=== PATIENT | male | born 1945 | race Two or more races ===

== ENCOUNTER → 2023-03-22 07:16 | Outpatient (BNVA) | payer MEDICARE, SELFPAY | PROVIDERS: Visit Provider Student in an Organized Health Care Education/Training Program | DX: M06.09 Rheumatoid arthritis without rheumatoid factor, multiple sites (principal); M25.561 Pain in right knee; M67.912 Unspecified disorder of synovium and tendon, left shoulder; G89.29 Other chronic pain; Z79.631 Long term (current) use of antimetabolite agent; Z11.59 Encounter for screening for other viral diseases; Z72.89 Other problems related to lifestyle | CPT/HCPCS: 36415; 80053; 82607; 82746; 85025; 85652; 86140; 86481; 86704; 86706; 86709; 86803; 87340; 99202 ==

== ENCOUNTER 2023-03-22 08:41 | Outpatient (REF) | payer MEDICARE, SELFPAY ==
[2023-03-22 11:10] LABS: MANUAL DIFF FLAG NO
[2023-03-22 11:41] LABS: Basophils Absolute Auto 0.1 X10*3/uL (0.0-0.2); Eosinophils Absolute Auto 0.1 X10*3/uL (0.0-0.4); Eosinophils Percent Auto 2.8 % (0-4); Hematocrit 40.8 % (42.0-52.0); Hemoglobin 13.1 g/dl (14.0-18.0); Imm Gran Abs Auto 0.01 X10*3/uL (0.00-0.03); Imm Gran Pct Auto 0.2 % (0.0-0.4); Lymphocytes Absolute Auto 0.7 X10*3/uL (1.2-4.9); Lymphocytes Percent Auto 14.9 % (20-40); Mean Corpuscular HGB Conc 32.1 g/dl (31.0-36.0); Mean Corpuscular Hemoglobin 32.2 pg (27.0-33.0); Mean Corpuscular Volume 100.2 fL (80.0-98.0); Mean Platelet Volume 9.7 fL (9.4-12.4); Monocytes Absolute Auto 0.4 X10*3/uL (0.1-1.2); Neutrophils Absolute Auto 3.7 x10*3/uL (2.0-8.3); Neutrophils Percent Auto 74.1 % (45-73); Platelet Count 200 X10*3/uL (160-400); Red Blood Count 4.07 X10*6/uL (4.60-5.80); Red Cell Distribution Width 13.9 % (11.0-16.0)
[2023-03-22 12:11] LABS: Alanine Aminotransferase 23 U/L (0-40); Alkaline Phosphatase 87 U/L (39-117); Anion Gap 9 (12-20); Aspartate Amino Transferase 26 U/L (5-37); Bilirubin Total 0.7 mg/dL (0.0-1.0); Blood Urea Nitrogen 15 mg/dL (9-16); C Reactive Protein < 0.10 mg/dL (< or = 0.50); Calcium 8.9 mg/dL (8.4-10.2); Carbon Dioxide 27 mmol/L (22-29); Chloride 110 mmol/L (96-108); Estimated Glomerular Filt Rate > 60; Glucose Random 125 mg/dL (60-115); Potassium 4.3 mmol/L (3.3-5.1); Sodium 142 mmol/L (135-145); Total Protein 5.8 g/dL (6.5-8.0)
[2023-03-22 12:39] LABS: Erythrocyte Sedimentation Rate 2 MM/HR (0-15)
[2023-03-22 12:50] LABS: Folate > 20.0 ng/mL (> or = 4.0); Vitamin B12 424 pg/mL (200-900)
[2023-03-23 08:46] LABS: HBS Num1 0.09 mIU/mL (0-7.99); HBc Num1 0.06 S/CO (0.00-0.79); HBsAGNum1 0.31 S/CO (0.00-0.99); Hepatitis A Antibody IgM 0.13 Index (0-0.79); Hepatitis B Core Antibody Nonreactive (Nonreactive); Hepatitis B Surface Antigen Negative (Negative); ~HepC Num1 0.09 S/CO (0.00-0.79); ~Hepatitis A Antibody IgM Nonreactive (Nonreactive); ~Hepatitis B Surface Antibody NONREACTIVE (Nonreactive); ~Hepatitis C Antibody Nonreactive (Nonreactive)
[2023-03-24 15:09] LABS: TS Negative Control Passed; TS Panel A 0; TS Panel B 1; TS Positive Control Passed; TSpotTB Negative (Negative)
== END 2023-03-22 08:42 | disposition home or self-care (01) ==
LOC: HO.10HDL 08:41
PROVIDERS: Visit Provider Student in an Organized Health Care Education/Training Program
DX: Z13.89 Encounter for screening for other disorder (principal)
CPT/HCPCS: 36415; 80053; 82607; 82746; 85025; 85652; 86140; 86481; 86704; 86706; 86709; 86803; 87340

== ENCOUNTER 2023-07-13 07:43 | Outpatient (REF) | payer MEDICARE, SELFPAY ==
[2023-07-13 10:18] LABS: MANUAL DIFF FLAG NO
[2023-07-13 10:23] LABS: Basophils Absolute Auto 0.1 X10*3/uL (0.0-0.2); Basophils Percent Auto 1.4 % (0-2); Eosinophils Absolute Auto 0.3 X10*3/uL (0.0-0.4); Eosinophils Percent Auto 5.8 % (0-4); Hematocrit 37.9 % (42.0-52.0); Hemoglobin 12.3 g/dl (14.0-18.0); Imm Gran Abs Auto 0.01 X10*3/uL (0.00-0.03); Imm Gran Pct Auto 0.2 % (0.0-0.4); Lymphocytes Absolute Auto 1.1 X10*3/uL (1.2-4.9); Lymphocytes Percent Auto 18.5 % (20-40); Mean Corpuscular HGB Conc 32.5 g/dl (31.0-36.0); Mean Corpuscular Hemoglobin 32.9 pg (27.0-33.0); Mean Corpuscular Volume 101.3 fL (80.0-98.0); Mean Platelet Volume 9.7 fL (9.4-12.4); Monocytes Absolute Auto 0.5 X10*3/uL (0.1-1.2); Monocytes Percent Auto 8.5 % (2-11); Neutrophils Absolute Auto 3.8 x10*3/uL (2.0-8.3); Neutrophils Percent Auto 65.6 % (45-73); Platelet Count 218 X10*3/uL (160-400); Red Blood Count 3.74 X10*6/uL (4.60-5.80); Red Cell Distribution Width 14.2 % (11.0-16.0); White Blood Count 5.9 X10*3/uL (4.8-10.8)
[2023-07-13 10:50] LABS: Alanine Aminotransferase 20 U/L (0-40); Alkaline Phosphatase 78 U/L (39-117); Anion Gap 10 (12-20); Aspartate Amino Transferase 27 U/L (5-37); Bilirubin Total 0.6 mg/dL (0.0-1.0); Blood Urea Nitrogen 16 mg/dL (9-16); C Reactive Protein < 0.10 mg/dL (< or = 0.50); Calcium 9.3 mg/dL (8.4-10.2); Carbon Dioxide 26 mmol/L (22-29); Chloride 108 mmol/L (96-108); Estimated Glomerular Filt Rate > 60; Glucose Random 121 mg/dL (60-115); Potassium 4.2 mmol/L (3.3-5.1); Sodium 140 mmol/L (135-145); Total Protein 6.3 g/dL (6.5-8.0)
[2023-07-13 11:15] LABS: Erythrocyte Sedimentation Rate 4 MM/HR (0-15)
== END 2023-07-13 07:44 | disposition home or self-care (01) ==
LOC: HO.10HDL 07:43
PROVIDERS: Visit Provider Student in an Organized Health Care Education/Training Program
DX: Z79.899 Other long term (current) drug therapy (principal)
CPT/HCPCS: 36415; 80053; 85025; 85652; 86140

== ENCOUNTER 2023-07-24 09:08 | Outpatient (AMB) | payer MEDICARE, SELFPAY ==
[2023-07-24 09:14] VITALS: BP 118/78; PULSE 83; TEMP 36.6; O2SAT 95; BMI 23.4
--- NOTE | 2023-07-24 09:14 | MHC.OFFVIS ---
Intake Vital Signs 07/24/23 09:14 Height 5 ft 11 in Weight 167 lb 8.821 oz BMI 23.4 BP 118/78 Blood Pressure Location Rt brachial Position Sitting Pulse 83 Pulse Source Pulse Oximeter Temp 97.9 F Temp Source Skin Pulse Oximetry (%) 95 Intake Visit Reasons: RA Intake Note: Pt seen today for RA follow up. 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 Required: No Accompanied by: Self / Same As Patient Allergies No Known Allergies Allergy (Verified 07/24/23 09:17) Medication List - Last Reconciled 07/24/23 by Josefa Chau MD atorvastatin 20 mg PO DAILY famotidine 20 mg PO BEDTIME folic acid 2 mg PO gabapentin 300 mg PO BEDTIME methotrexate sodium (PF) 20 mg (0.8 mL) IM QWEEK oxycodone-acetaminophen 5-325 mg 1 tab PO DAILY PRN prednisone 3 mg (3 x 1 mg) PO DAILY tramadol 50 mg PO DAILY PRN vitamins A,C,C-ullm-ajvyvf 4,296 mcg-226 mg-90 mg (PreserVision AREDS) 1 cap PO BID HPI HPI Comments History of Present Illness Details 77-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 Doing about the same overall. Continues on methotrexate. Continues to have right knee pain worse with walking. Left shoulder is stiff. States that he strained his neck about a year ago when he was doing some yd work last year but it is slowly improving. Initial history: This is a 77-year-old male with seronegative RA who presents for initial visit. His previous lace weaver left the practice. Patient was diagnosed with seronegative RA back in 2014, but apparently he had had the symptoms for years before getting diagnosed. He had been on methotrexate since his diagnosis. He states that methotrexate has helped him over the years. Today patient is doing well overall. States that his right knee has been bothering him for a few years now. He has had cortisone injections which helped for 1 or 2 days in the past. States that the knee pain is worse with twisting movements. He uses a cane for balance and for right knee pain. 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 As well as scoliosis. He takes tramadol about once a week or Percocet once a week for back or knee pain. 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 [facility] [place] Physical Exam Vital Signs: Last Vital Signs Temp 97.9 F 07/24/23 09:14 Pulse 83 07/24/23 09:14 BP 118/78 07/24/23 09:14 Pulse Ox 95 07/24/23 09:14 BMI result Body Mass Index 23.4 Const General: cooperative, healthy appearing and comfortable Nutritional Appearance: average body habitus Orientation/consciousness: patient oriented x3 Limitations: ambulation with cane HEENT Head: Yes normocephalic and Yes atraumatic Resp Effort & Inspection: normal respiratory effort and able to speak in complete sentences Neuro General: patient oriented x3 Extrem Other: Positive empty can test left shoulder Negative infraspinatus test and lift-off test Osteoarthritic changes of both hands with Heberden's and Aby's nodes as well as the synovial thickening of MCPs without swelling or tenderness mild Right wrist swelling and tenderness Bilateral wrist contracture with significantly limited flexion and extension Left clubfoot with no synovitis Bilateral bunions and mild fibular deviation with no MTP tenderness Right knee crepitus and equivocal Radha's test Right knee pain with range of motion Assessment & Plan Assessment & Plan (1) Rheumatoid arthritis: Comment: seroneg dx 2015 on MTX since 2014 + PDN 3 mg Code(s): M06.9 - Rheumatoid arthritis, unspecified Qualifiers: Rheumatoid arthritis location: multiple sites Rheumatoid factor presence: without rheumatoid factor Qualified Code(s): M06.09 - Rheumatoid arthritis without rheumatoid factor, multiple sites Plan: This is a 78-year-old male with seronegative RA who returns for follow-up.. Patient patient has chronic disease with some deformities and contractures of his wrist. His RA is well controlled on current regimen. Methotrexate oral liquid 20 mg weekly, folic acid 2 mg daily and prednisone 3 mg daily Continue methotrexate 20 mg once weekly plus folic acid 2 mg daily. Reduce prednisone to 2.5 mg daily, advised patient to call the clinic if he starts flaring up and we can increase the dose back to 3 mg daily Infectious screening: Hepatitis panel and T spot negative 2022 Labs before next visit in 4 months (2) longterm methotrexate user: Code(s): Z79.631 - intermodal customer service (current) use of antimetabolite agent Plan: Side effects of methotrexate were discussed with the patient in detail including oral ulcers, elevated LFTs, abdominal discomfort, and possible pancytopenia is. Will monitor patient for side effects with frequent lab work. Advised patient to take folic acid daily to prevent complications of methotrexate. Patient has been on methotrexate for years with no side effects. (3) Tendinopathy of left rotator cuff: Code(s): M67.912 - Unspecified disorder of synovium and tendon, left shoulder Plan: Not interested in physical therapy at the moment. (4) Pain in right knee: Code(s): M25.561 - Pain in right knee Qualifiers: Chronicity: chronic Qualified Code(s): M25.561 - Pain in right knee; G89.29 - Other chronic pain Plan: Patient complains that his right knee sometimes gives out on him is specially with twisting movements, states that his balance is good with using the cane. Cortisone injections only provided 1-2 days relief in the past. Patient likely has significant osteoarthritis of his right knee and possible internal derangement but he is not interested in a knee MRI or being referred to Orthopedic surgery at the moment Left knee was replaced years ago Plan I spent 29 minutes reviewing patient's chart, evaluating patient, ordering diagnostic workup, counseling patient and documenting in the chart Orders: Orders Complete Blood Count Auto Diff 4 Months Z79.631 - intermodal customer service (current) use of antimetabolite agent Comprehensive Met. Panel 4 Months Z79.631 - longterm (current) use of antimetabolite agent C Reactive Protein 4 Months Z79.631 - longterm (current) use of antimetabolite agent Erythrocyte Sedimentation Rate 4 Months Z79.631 - intermodal customer service (current) use of antimetabolite agent Medications: New prednisone 2.5 mg PO DAILY 30 tabs 3RF Coding Level of Care Code Est Pt Level 4 (80836) Diagnoses Rheumatoid arthritis M06.09 Rheumatoid arthritis location: multiple sites Rheumatoid factor presence: without rheumatoid factor longterm methotrexate user Z79.631 Tendinopathy of left rotator cuff M67.912 Pain in right knee M25.561; G89.29 Chronicity: chronic
== END 2023-07-24 09:51 | disposition home or self-care (01) ==
PROVIDERS: Visit Provider Student in an Organized Health Care Education/Training Program
DX: M06.09 Rheumatoid arthritis without rheumatoid factor, multiple sites (principal); Z79.631 Long term (current) use of antimetabolite agent; M67.912 Unspecified disorder of synovium and tendon, left shoulder; M25.561 Pain in right knee; G89.29 Other chronic pain
CPT/HCPCS: 99214

== ENCOUNTER → 2023-07-24 09:08 | Outpatient (BNVA) | payer MEDICARE, SELFPAY | PROVIDERS: Visit Provider Student in an Organized Health Care Education/Training Program | DX: M06.09 Rheumatoid arthritis without rheumatoid factor, multiple sites (principal); M67.912 Unspecified disorder of synovium and tendon, left shoulder; G89.29 Other chronic pain; M25.561 Pain in right knee; Z79.631 Long term (current) use of antimetabolite agent; Z96.652 Presence of left artificial knee joint | CPT/HCPCS: 99212 ==

== ENCOUNTER 2023-11-09 08:37 | Outpatient (REF) | payer MEDICARE, SELFPAY ==
[2023-11-09 10:27] LABS: MANUAL DIFF FLAG NO
[2023-11-09 10:54] LABS: Alanine Aminotransferase 19 U/L (0-40); Albumin Level 4.1 g/dL (3.5-5.0); Alkaline Phosphatase 101 U/L (39-117); Anion Gap 11 (12-20); Aspartate Amino Transferase 24 U/L (5-37); Bilirubin Total 0.5 mg/dL (0.0-1.0); Blood Urea Nitrogen 15 mg/dL (9-16); C Reactive Protein 0.12 mg/dL (< or = 0.50); Calcium 9.2 mg/dL (8.4-10.2); Carbon Dioxide 28 mmol/L (22-29); Chloride 105 mmol/L (96-108); Estimated Glomerular Filt Rate > 60; Glucose Random 121 mg/dL (60-115); Potassium 4.2 mmol/L (3.3-5.1); Sodium 140 mmol/L (135-145); Total Protein 6.5 g/dL (6.5-8.0)
[2023-11-09 11:07] LABS: Basophils Absolute Auto 0.1 X10*3/uL (0.0-0.2); Basophils Percent Auto 0.9 % (0-2); Eosinophils Absolute Auto 0.2 X10*3/uL (0.0-0.4); Eosinophils Percent Auto 2.5 % (0-4); Hematocrit 40.8 % (42.0-52.0); Imm Gran Abs Auto 0.03 X10*3/uL (0.00-0.03); Imm Gran Pct Auto 0.5 % (0.0-0.4); Lymphocytes Absolute Auto 0.9 X10*3/uL (1.2-4.9); Lymphocytes Percent Auto 14.5 % (20-40); Mean Corpuscular HGB Conc 31.9 g/dl (31.0-36.0); Mean Corpuscular Hemoglobin 32.2 pg (27.0-33.0); Mean Platelet Volume 9.5 fL (9.4-12.4); Monocytes Absolute Auto 0.6 X10*3/uL (0.1-1.2); Monocytes Percent Auto 8.9 % (2-11); Neutrophils Absolute Auto 4.7 x10*3/uL (2.0-8.3); Neutrophils Percent Auto 72.7 % (45-73); Platelet Count 247 X10*3/uL (160-400); Red Blood Count 4.04 X10*6/uL (4.60-5.80); Red Cell Distribution Width 13.8 % (11.0-16.0); White Blood Count 6.5 X10*3/uL (4.8-10.8)
[2023-11-09 11:23] LABS: Erythrocyte Sedimentation Rate 6 MM/HR (0-15)
== END 2023-11-09 08:38 | disposition home or self-care (01) ==
LOC: HO.10HDL 08:37
PROVIDERS: Visit Provider Student in an Organized Health Care Education/Training Program
DX: Z79.899 Other long term (current) drug therapy (principal)
CPT/HCPCS: 36415; 80053; 85025; 85652; 86140

== ENCOUNTER 2023-11-21 09:07 | Outpatient (AMB) | payer MEDICARE, SELFPAY ==
[2023-11-21 09:17] VITALS: BP 128/80; PULSE 56; TEMP 36.5; O2SAT 95; BMI 23.6
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
== END 2023-11-21 09:51 | disposition home or self-care (01) ==
LOC: HO.RHE 09:07
PROVIDERS: Visit Provider Student in an Organized Health Care Education/Training Program
DX: M06.09 Rheumatoid arthritis without rheumatoid factor, multiple sites (principal); Z79.631 Long term (current) use of antimetabolite agent; M25.561 Pain in right knee; G89.29 Other chronic pain; Z71.85 Encounter for immunization safety counseling
CPT/HCPCS: 99214

== ENCOUNTER → 2023-11-21 09:07 | Outpatient (BNVA) | payer MEDICARE, SELFPAY | PROVIDERS: Visit Provider Student in an Organized Health Care Education/Training Program | DX: M06.09 Rheumatoid arthritis without rheumatoid factor, multiple sites (principal); M25.561 Pain in right knee; G89.29 Other chronic pain; Z79.631 Long term (current) use of antimetabolite agent; Z71.85 Encounter for immunization safety counseling | CPT/HCPCS: 99212 ==

== ENCOUNTER 2024-03-13 11:10 | Outpatient (REF) | payer MEDICARE, SELFPAY ==
[2024-03-13 12:52] LABS: MANUAL DIFF FLAG NO
[2024-03-13 12:58] LABS: Basophils Absolute Auto 0.1 X10*3/uL (0.0-0.2); Basophils Percent Auto 0.9 % (0-2); Eosinophils Absolute Auto 0.2 X10*3/uL (0.0-0.4); Eosinophils Percent Auto 3.4 % (0-4); Hematocrit 39.3 % (42.0-52.0); Imm Gran Abs Auto 0.01 X10*3/uL (0.00-0.03); Imm Gran Pct Auto 0.2 % (0.0-0.4); Lymphocytes Absolute Auto 1.1 X10*3/uL (1.2-4.9); Lymphocytes Percent Auto 17.9 % (20-40); Mean Corpuscular HGB Conc 33.1 g/dl (31.0-36.0); Mean Corpuscular Hemoglobin 32.6 pg (27.0-33.0); Mean Corpuscular Volume 98.5 fL (80.0-98.0); Mean Platelet Volume 9.4 fL (9.4-12.4); Monocytes Absolute Auto 0.5 X10*3/uL (0.1-1.2); Monocytes Percent Auto 7.8 % (2-11); Neutrophils Absolute Auto 4.1 x10*3/uL (2.0-8.3); Neutrophils Percent Auto 69.8 % (45-73); Platelet Count 181 X10*3/uL (160-400); Red Blood Count 3.99 X10*6/uL (4.60-5.80); Red Cell Distribution Width 14.1 % (11.0-16.0); White Blood Count 5.9 X10*3/uL (4.8-10.8)
[2024-03-13 13:25] LABS: Alanine Aminotransferase 20 U/L (0-40); Albumin Level 4.1 g/dL (3.5-5.0); Alkaline Phosphatase 92 U/L (39-117); Anion Gap 9 (12-20); Aspartate Amino Transferase 24 U/L (5-37); Bilirubin Total 0.5 mg/dL (0.0-1.0); Blood Urea Nitrogen 16 mg/dL (9-16); C Reactive Protein 0.18 mg/dL (< or = 0.50); Calcium 9.3 mg/dL (8.4-10.2); Carbon Dioxide 28 mmol/L (22-29); Chloride 107 mmol/L (96-108); Estimated Glomerular Filt Rate > 60; Glucose Random 107 mg/dL (60-115); Potassium 4.2 mmol/L (3.3-5.1); Sodium 140 mmol/L (135-145); Total Protein 6.2 g/dL (6.5-8.0)
[2024-03-13 13:44] LABS: Erythrocyte Sedimentation Rate 5 MM/HR (0-15)
== END 2024-03-13 11:11 | disposition home or self-care (01) ==
LOC: HO.10HDL 11:10
PROVIDERS: Visit Provider Student in an Organized Health Care Education/Training Program
DX: M06.09 Rheumatoid arthritis without rheumatoid factor, multiple sites (principal); Z79.631 Long term (current) use of antimetabolite agent
CPT/HCPCS: 36415; 80053; 85025; 85652; 86140

== ENCOUNTER 2024-03-26 09:07 | Outpatient (AMB) | payer MEDICARE, SELFPAY ==
--- NOTE | 2024-03-26 09:07 | MHC.OFFVIS ---
Vital Signs 03/26/24 09:08 Height 5 ft 11 in Weight 171 lb 15.369 oz BMI 24.0 BP 138/68 Blood Pressure Location Rt brachial Position Sitting Pulse 55 Pulse Source Pulse Oximeter Pulse Oximetry (%) 96 Oxygen Delivery Method Room Air Intake Visit Reasons: RA Intake Note: Patient last seen 11/21/23 presents today for follow up and test results. Rehab Trainer Required: No Accompanied by: Self / Same As Patient Allergies No Known Allergies Allergy (Verified 03/26/24 09:12) Medication List - Last Reconciled 03/26/24 by Josefa Chau MD atorvastatin 20 mg PO DAILY famotidine 20 mg PO BEDTIME folic acid 2 mg (2 x 1 mg) PO DAILY gabapentin 300 mg PO BEDTIME methotrexate sodium (PF) 20 mg (0.8 mL) IM QWEEK oxycodone-acetaminophen 5-325 mg 1 tab PO DAILY PRN prednisone 2 mg (2 x 1 mg) PO DAILY tramadol 50 mg PO DAILY PRN vitamins A,C,J-wufj-zzpdpo 4,296 mcg-226 mg-90 mg (PreserVision AREDS) 1 cap PO BID HPI Comments Details: 78-year-old male with seronegative deforming RA returns for follow-up. On methotrexate solution orally 20 mg weekly, folic acid 2 mg daily and prednisone 2 mg daily mg daily. He stated that since lowering his prednisone from 2.5 mg daily to 2 mg daily has been having worsening knee pain. He is still able to get up and move, do what he needs to do a lives alone and takes care of his household. Gets intermittent bruising of his right forearm that improves on its own. No other complaints Initial history: This is a 77-year-old male with seronegative RA who presents for initial visit. 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 Patient was diagnosed with seronegative RA back in 2014, but apparently he had had the symptoms for years before getting diagnosed. He had been on methotrexate since his diagnosis. He states that methotrexate has helped him over the years. Today patient is doing well overall. States that his right knee has been bothering him for a few years now. He has had cortisone injections which helped for 1 or 2 days in the past. States that the knee pain is worse with twisting movements. He uses a cane for balance and for right knee pain. 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 As well as scoliosis. He takes tramadol about once a week or Percocet once a week for back or knee pain. 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 [facility] [place] Reports arthralgias Physical Exam Vital Signs: Last Vital Signs Pulse 55 03/26/24 09:08 BP 138/68 03/26/24 09:08 Pulse Ox 96 03/26/24 09:08 Oxygen Delivery Method Room Air 03/26/24 09:08 BMI result Body Mass Index 24.0 Const General: cooperative, healthy appearing and comfortable Nutritional Appearance: average body habitus Orientation/consciousness: patient oriented x3 Limitations: ambulation with cane HEENT Head: Yes normocephalic and Yes atraumatic Resp Effort & Inspection: normal respiratory effort and able to speak in complete sentences Auscultation: clear to auscultation bilaterally Neuro General: patient oriented x3 Extrem Other: Osteoarthritic changes of both hands with Heberden's and Aby's nodes as well as the synovial thickening of MCPs without swelling or tenderness Bilateral wrist contracture with significantly limited flexion and extension Mild ulnar deviation at the MCPs left hand Left clubfoot with no synovitis Bilateral bunions and mild fibular deviation with no MTP tenderness Right knee contracture and crepitus Right knee pain with range of motion Assessment & Plan Assessment & Plan (1) Rheumatoid arthritis: Comment: seroneg dx 2015 on MTX since 2014 + PDN 3 mg Code(s): M06.9 - Rheumatoid arthritis, unspecified Category: Medical Qualifiers: Rheumatoid arthritis location: multiple sites Rheumatoid factor presence: without rheumatoid factor Qualified Code(s): M06.09 - Rheumatoid arthritis without rheumatoid factor, multiple sites Plan: This is a 78-year-old male with seronegative RA who returns for follow-up.. Patient patient has chronic disease with some deformities and contractures of his wrists. On Methotrexate oral liquid 20 mg weekly, folic acid 2 mg daily and prednisone 2 mg daily. Since lowering prednisone from 2.5 mg daily to 2 mg daily has been having worsening right knee pain. I think at this stage prednisone was likely helping his knee osteoarthritis rather than his RA. 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 Will monitor patient for side effects with frequent lab work. Advised patient to take folic acid daily to prevent complications of methotrexate. Patient has been on methotrexate for years with no side effects. (3) Pain in right knee: Code(s): M25.561 - Pain in right knee Category: Medical Qualifiers: Chronicity: chronic Qualified Code(s): M25.561 - Pain in right knee; G89.29 - Other chronic pain Plan: Patient complains that his right knee sometimes gives out on him is specially with twisting movements, states that his balance is good with using the cane. Cortisone injections only provided 1-2 days relief in the past. Patient likely has significant osteoarthritis of his right knee and possible internal derangement but he is not interested in a knee MRI or being referred to Orthopedic surgery at the moment Left knee was replaced years ago Plan I spent 29 minutes reviewing patient's chart, evaluating patient, ordering diagnostic workup, counseling patient and documenting in the chart Orders: Orders C Reactive Protein 4 Months M06.09 - Rheumatoid arthritis without rheumatoid factor, multiple sites, Z79.631 - penitentiary (current) use of antimetabolite agent Erythrocyte Sedimentation Rate 4 Months M06.09 - Rheumatoid arthritis without rheumatoid factor, multiple sites, Z79.631 - terminal supervisor (current) use of antimetabolite agent Complete Blood Count Auto Diff 4 Months M06.09 - Rheumatoid arthritis without rheumatoid factor, multiple sites, Z79.631 - penitentiary (current) use of antimetabolite agent Comprehensive Met. Panel 4 Months M06.09 - Rheumatoid arthritis without rheumatoid factor, multiple sites, Z79.631 - penitentiary (current) use of antimetabolite agent Medications: Changed From prednisone 2 mg (2 x 1 mg) PO DAILY 120 tabs 1RF To prednisone 3 mg (3 x 1 mg) PO DAILY 270 tabs 1RF Refilled folic acid 2 mg (2 x 1 mg) PO DAILY 180 tabs 1RF methotrexate sodium (PF) 20 mg (0.8 mL) IM QWEEK 10 mL 1RF M06.09 - Rheumatoid arthritis without rheumatoid factor, multiple sites Coding Level of Care Code Est Pt Level 4 (51027) Complex EM visit Add On G2211 Diagnoses Rheumatoid arthritis of multiple sites with negative rheumatoid factor M06. Rheumatoid arthritis location: multiple sites Rheumatoid factor presence: without rheumatoid factor penitentiary methotrexate user Z79.631 Chronic pain of right knee M25.561; G89.29 Chronicity: chronic
[2024-03-26 09:08] VITALS: BP 138/68; PULSE 55; O2SAT 96; BMI 24.0
== END 2024-03-26 09:32 | disposition home or self-care (01) ==
PROVIDERS: PCP Physician Assistant Medical; Visit Provider Student in an Organized Health Care Education/Training Program
DX: M06.09 Rheumatoid arthritis without rheumatoid factor, multiple sites (principal); Z79.631 Long term (current) use of antimetabolite agent; M25.561 Pain in right knee; G89.29 Other chronic pain
CPT/HCPCS: 99214; G2211

== ENCOUNTER → 2024-03-26 09:07 | Outpatient (BNVA) | payer MEDICARE, SELFPAY | PROVIDERS: PCP Physician Assistant Medical; Visit Provider Student in an Organized Health Care Education/Training Program | DX: M06.09 Rheumatoid arthritis without rheumatoid factor, multiple sites (principal); M25.561 Pain in right knee; G89.29 Other chronic pain; Q66.89 Other specified congenital deformities of feet; Z79.631 Long term (current) use of antimetabolite agent | CPT/HCPCS: 99212 ==

== ENCOUNTER 2024-07-16 09:54 | Outpatient (REF) | payer MEDICARE, SELFPAY ==
[2024-07-16 11:38] LABS: MANUAL DIFF FLAG NO
[2024-07-16 11:40] LABS: Basophils Absolute Auto 0.1 X10*3/uL (0.0-0.2); Basophils Percent Auto 0.8 % (0-2); Eosinophils Absolute Auto 0.2 X10*3/uL (0.0-0.4); Eosinophils Percent Auto 2.5 % (0-4); Hematocrit 37.9 % (42.0-52.0); Hemoglobin 12.6 g/dl (14.0-18.0); Imm Gran Abs Auto 0.03 X10*3/uL (0.00-0.03); Imm Gran Pct Auto 0.5 % (0.0-0.4); Lymphocytes Absolute Auto 0.8 X10*3/uL (1.2-4.9); Mean Corpuscular HGB Conc 33.2 g/dl (31.0-36.0); Mean Corpuscular Hemoglobin 33.7 pg (27.0-33.0); Mean Corpuscular Volume 101.3 fL (80.0-98.0); Mean Platelet Volume 9.1 fL (9.4-12.4); Monocytes Absolute Auto 0.5 X10*3/uL (0.1-1.2); Monocytes Percent Auto 8.3 % (2-11); Neutrophils Absolute Auto 4.5 x10*3/uL (2.0-8.3); Neutrophils Percent Auto 74.9 % (45-73); Platelet Count 184 X10*3/uL (160-400); Red Blood Count 3.74 X10*6/uL (4.60-5.80); Red Cell Distribution Width 14.2 % (11.0-16.0)
[2024-07-16 12:21] LABS: Erythrocyte Sedimentation Rate 5 MM/HR (0-15)
[2024-07-16 12:28] LABS: Alanine Aminotransferase 19 U/L (0-40); Albumin Level 4.1 g/dL (3.5-5.0); Alkaline Phosphatase 81 U/L (39-117); Anion Gap 10 (12-20); Aspartate Amino Transferase 26 U/L (5-37); Bilirubin Total 0.6 mg/dL (0.0-1.0); Blood Urea Nitrogen 15 mg/dL (9-16); Calcium 9.5 mg/dL (8.4-10.2); Carbon Dioxide 27 mmol/L (22-29); Chloride 107 mmol/L (96-108); Estimated Glomerular Filt Rate > 60; Glucose Random 124 mg/dL (60-115); Potassium 4.3 mmol/L (3.3-5.1); Sodium 140 mmol/L (135-145); Total Protein 6.3 g/dL (6.5-8.0)
== END 2024-07-16 09:55 | disposition home or self-care (01) ==
LOC: HO.10HDL 09:54
PROVIDERS: Visit Provider Student in an Organized Health Care Education/Training Program
DX: M06.9 Rheumatoid arthritis, unspecified (principal); Z79.631 Long term (current) use of antimetabolite agent
CPT/HCPCS: 36415; 80053; 85025; 85652; 86140

== ENCOUNTER 2024-10-08 08:00 | Outpatient (REF) | payer MEDICARE, SELFPAY ==
[2024-10-08 10:46] LABS: MANUAL DIFF FLAG NO
[2024-10-08 11:02] LABS: Basophils Absolute Auto 0.1 X10*3/uL (0.0-0.2); Basophils Percent Auto 1.2 % (0-2); Eosinophils Absolute Auto 0.2 X10*3/uL (0.0-0.4); Eosinophils Percent Auto 3.6 % (0-4); Hematocrit 39.6 % (42.0-52.0); Hemoglobin 12.8 g/dl (14.0-18.0); Imm Gran Abs Auto 0.01 X10*3/uL (0.00-0.03); Imm Gran Pct Auto 0.1 % (0.0-0.4); Lymphocytes Absolute Auto 0.7 X10*3/uL (1.2-4.9); Lymphocytes Percent Auto 10.8 % (20-40); Mean Corpuscular HGB Conc 32.3 g/dl (31.0-36.0); Mean Corpuscular Hemoglobin 32.6 pg (27.0-33.0); Mean Corpuscular Volume 100.8 fL (80.0-98.0); Mean Platelet Volume 9.4 fL (9.4-12.4); Monocytes Absolute Auto 0.6 X10*3/uL (0.1-1.2); Neutrophils Percent Auto 75.3 % (45-73); Platelet Count 239 X10*3/uL (160-400); Red Blood Count 3.93 X10*6/uL (4.60-5.80); White Blood Count 6.7 X10*3/uL (4.8-10.8)
[2024-10-08 11:29] LABS: Alanine Aminotransferase 23 U/L (0-40); Alkaline Phosphatase 90 U/L (39-117); Anion Gap 10 (12-20); Aspartate Amino Transferase 26 U/L (5-37); Bilirubin Total 0.6 mg/dL (0.0-1.0); Blood Urea Nitrogen 16 mg/dL (9-16); C Reactive Protein < 0.10 mg/dL (< or = 0.50); Calcium 8.8 mg/dL (8.4-10.2); Carbon Dioxide 29 mmol/L (22-29); Chloride 106 mmol/L (96-108); Estimated Glomerular Filt Rate > 60; Glucose Random 132 mg/dL (60-115); Potassium 4.7 mmol/L (3.3-5.1); Sodium 140 mmol/L (135-145); Total Protein 6.4 g/dL (6.5-8.0)
[2024-10-08 11:44] LABS: Erythrocyte Sedimentation Rate 7 MM/HR (0-15)
== END 2024-10-08 08:01 | disposition home or self-care (01) ==
LOC: HO.10HDL 08:00
PROVIDERS: Visit Provider Student in an Organized Health Care Education/Training Program
DX: M06.09 Rheumatoid arthritis without rheumatoid factor, multiple sites (principal); Z79.631 Long term (current) use of antimetabolite agent
CPT/HCPCS: 36415; 80053; 85025; 85652; 86140

== ENCOUNTER 2024-10-15 09:08 | Outpatient (AMB) | payer MEDICARE, SELFPAY ==
--- NOTE | 2024-10-15 09:12 | MHC.OFFVIS ---
Vital Signs 10/15/24 09:18 Height 5 ft 11 in Weight 173 lb 15.115 oz BMI 24.3 BP 116/62 Blood Pressure Location Lt brachial Position Sitting Pulse 59 Pulse Source Pulse Oximeter Pulse Oximetry (%) 95 Oxygen Delivery Method Room Air Intake Visit Reasons: RA/CM APT Intake Note: Patient presents for RA. Allergies No Known Allergies Allergy (Verified 10/15/24 09:16) Medication List - Last Reconciled 10/15/24 by Josefa Chau MD atorvastatin 40 mg PO DAILY famotidine 20 mg PO BEDTIME folic acid 2 mg (2 x 1 mg) PO DAILY gabapentin 300 mg PO BEDTIME methotrexate sodium (PF) 20 mg (0.8 mL) IM QWEEK oxycodone-acetaminophen 5-325 mg 1 tab PO DAILY PRN prednisone 3 mg (3 x 1 mg) PO DAILY tramadol 50 mg PO DAILY PRN vitamins A,C,E-nzmn-zenwdr 4,296 mcg-226 mg-90 mg (PreserVision AREDS) 1 cap PO BID HPI Comments Details: 79-year-old male with seronegative deforming RA returns for follow-up. On methotrexate solution orally 20 mg weekly, folic acid 2 mg daily and prednisone 3 mg daily mg daily. States that he feels he is getting all. His gait is getting a little worse. He needs his cane with him all the time. Denies any significant joint pain or swelling. States that he was recently to have some blood in his stool when he wipes, he was referred to see a railroad car inspector Initial history: This is a 77-year-old male with seronegative RA who presents for initial visit. His previous manager mortgage left the practice. Patient was diagnosed with seronegative RA back in 2014, but apparently he had had the symptoms for years before getting diagnosed. He had been on methotrexate since his diagnosis. He states that methotrexate has helped him over the years. Today patient is doing well overall. States that his right knee has been bothering him for a few years now. He has had cortisone injections which helped for 1 or 2 days in the past. States that the knee pain is worse with twisting movements. He uses a cane for balance and for right knee pain. 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 As well as scoliosis. He takes tramadol about once a week or Percocet once a week for back or knee pain. 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 Review of Systems Musc Details: For balance Reports deformity, Reports arthralgias, Denies joint swelling and Reports limited range of motion Physical Exam Vital Signs: Last Vital Signs Pulse 59 10/15/24 09:18 BP 116/62 10/15/24 09:18 Pulse Ox 95 10/15/24 09:18 Oxygen Delivery Method Room Air 10/15/24 09:18 BMI result Body Mass Index 24.3 Const General: cooperative, healthy appearing and comfortable Nutritional Appearance: average body habitus Orientation/consciousness: patient oriented x3 Limitations: ambulation with cane HEENT Head: Yes normocephalic and Yes atraumatic Resp Effort & Inspection: normal respiratory effort and able to speak in complete sentences Auscultation: clear to auscultation bilaterally Neuro General: patient oriented x3 Extrem Other: Osteoarthritic changes of both hands with Heberden's and Aby's nodes as well as the synovial thickening of MCPs without swelling or tenderness Bilateral wrist contracture with significantly limited flexion and extension Mild ulnar deviation at the MCPs left hand Left clubfoot with no synovitis Bilateral bunions and mild fibular deviation with no MTP tenderness Right knee contracture and crepitus Right knee pain with range of motion Assessment & Plan Assessment & Plan (1) Rheumatoid arthritis: Comment: seroneg dx 2015 on MTX since 2014 + PDN 3 mg Code(s): M06.9 - Rheumatoid arthritis, unspecified Category: Medical Qualifiers: Rheumatoid arthritis location: multiple sites Rheumatoid factor presence: without rheumatoid factor Qualified Code(s): M06.09 - Rheumatoid arthritis without rheumatoid factor, multiple sites Plan: This is a 78-year-old male with seronegative RA who returns for follow-up. Patient patient has chronic disease with some deformities and contractures of his wrists. On Methotrexate oral liquid 20 mg weekly, folic acid 2 mg daily and prednisone 3 mg daily. 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 Will monitor patient for side effects with frequent lab work. Advised patient to take folic acid daily to prevent complications of methotrexate. Patient has been on methotrexate for years with no side effects. (3) Pain in right knee: Code(s): M25.561 - Pain in right knee Category: Medical Qualifiers: Chronicity: chronic Qualified Code(s): M25.561 - Pain in right knee; G89.29 - Other chronic pain Plan: Patient complains that his right knee sometimes gives out on him is specially with twisting movements, states that his balance is good with using the cane. Cortisone injections only provided 1-2 days relief in the past. Patient likely has significant osteoarthritis of his right knee and possible internal derangement but he is not interested in a knee MRI or being referred to Orthopedic surgery at the moment Left knee was replaced years ago Plan I spent 29 minutes reviewing patient's chart, evaluating patient, ordering diagnostic workup, counseling patient and documenting in the chart Orders: Orders Complete Blood Count Auto Diff 01/15/25 M06.09 - Rheumatoid arthritis without rheumatoid factor, multiple sites, Z79.631 - group home (current) use of antimetabolite agent Complete Blood Count Auto Diff 04/15/25 M06.09 - Rheumatoid arthritis without rheumatoid factor, multiple sites, Z79.631 - group home (current) use of antimetabolite agent Complete Blood Count Auto Diff 10/12/25 M06.09 - Rheumatoid arthritis without rheumatoid factor, multiple sites, Z79.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 Panel 01/15/25 M06.09 - Rheumatoid arthritis without rheumatoid factor, multiple sites, Z79.631 - group home (current) use of antimetabolite agent Comprehensive Met. 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 (current) use of antimetabolite agent C Reactive Protein 04/15/25 M06.09 - Rheumatoid arthritis without rheumatoid factor, multiple sites, Z79.631 - group home (current) use of antimetabolite agent C Reactive Protein 07/14/25 M06.09 - Rheumatoid arthritis without rheumatoid factor, multiple sites, Z79.631 - group home (current) use of antimetabolite agent Erythrocyte Sedimentation Rate 01/15/25 M06.09 - Rheumatoid arthritis without rheumatoid factor, multiple sites, Z79.631 - group home (current) use of antimetabolite agent Erythrocyte Sedimentation Rate 04/15/25 M06.09 - Rheumatoid arthritis without rheumatoid factor, multiple sites, Z79.631 - 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 Panel 04/15/25 M06.09 - Rheumatoid arthritis without rheumatoid factor, multiple sites, Z79.631 - group home (current) use of antimetabolite agent Comprehensive Met. 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 of antimetabolite agent Erythrocyte Sedimentation Rate 07/14/25 M06.09 - Rheumatoid arthritis without rheumatoid factor, multiple sites, Z79.631 - group home (current) use of antimetabolite agent Medications: Refilled prednisone 3 mg (3 x 1 mg) PO DAILY 270 tabs 1RF methotrexate sodium (PF) 20 mg (0.8 mL) IM QWEEK 10 mL 1RF M06.09 - Rheumatoid arthritis without rheumatoid factor, multiple sites Coding Level of Care Code Est Pt Level 4 (70007) Complex EM visit Add On G2211 Diagnoses Rheumatoid arthritis of multiple sites with negative rheumatoid factor M06.09 Rheumatoid arthritis location: multiple sites Rheumatoid factor presence: without rheumatoid factor group home methotrexate user Z79.631 Chronic pain of right knee M25.561; G89.29 Chronicity: chronic
[2024-10-15 09:18] VITALS: BP 116/62; PULSE 59; O2SAT 95; BMI 24.3
== END 2024-10-15 09:41 | disposition home or self-care (01) ==
PROVIDERS: PCP Physician Assistant Medical; Visit Provider Student in an Organized Health Care Education/Training Program
DX: M06.09 Rheumatoid arthritis without rheumatoid factor, multiple sites (principal); Z79.631 Long term (current) use of antimetabolite agent; M25.561 Pain in right knee; G89.29 Other chronic pain
CPT/HCPCS: 99214; G2211

== ENCOUNTER → 2024-10-15 09:08 | Outpatient (BNVA) | payer MEDICARE, SELFPAY | PROVIDERS: PCP Physician Assistant Medical; Visit Provider Student in an Organized Health Care Education/Training Program | DX: M06.09 Rheumatoid arthritis without rheumatoid factor, multiple sites (principal); M25.561 Pain in right knee; G89.29 Other chronic pain; Z79.631 Long term (current) use of antimetabolite agent; Z79.52 Long term (current) use of systemic steroids | CPT/HCPCS: 99212 ==

== ENCOUNTER 2025-01-13 09:11 | Outpatient (REF) | payer MEDICARE, SELFPAY ==
--- OUTSIDE RECORDS SUMMARY | 2025-01-13 09:49 | XMS_ITS | Data Portability ---
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 Lab C-reactive protein, quantitativ e, serum or plasma 2021 [facility], [address] [place] [address], [id number], 15:32:16 erythrocyte sedimentati on rate by westergren method 2021 [facility], [address] [place] [address], [id number], 16:19:31 CMP, serum or plasma 2021 [facility], [address] [place] [address], [id number], 14:59:25 CBC 2021 [facility], [address] [place] [address], [id number], 12:38:32 C-reactive protein, quantitativ e, serum or plasma 2020 021 [facility], [address] [place] [address], 48736, 15:46:01 erythrocyte sedimentati on rate by westergren method 2020 021 [facility], [address] [place] [address], [id number], 16:18:26 CMP, serum or plasma 2020 021 [facility], [address] [place] [address], 31277, 12:05:18 unlisted lab - CBC w/o auto diff 2020 021 [facility], [address] [place] [address], [id number], 15:08:11 unlisted lab - CBC w/o auto diff 2020 021 [facility], [address] [place] [address], 50126, 11:23:28 erythrocyte sedimentati on rate by westergren method 2020 021 [facility], [address] [place] [address], [id number], 12:03:22 CMP, serum or plasma 2020 021 [facility], [address] [place] [address], 90465, 15:12:06 C-reactive protein, quantitativ e, serum or plasma 2020 021 [facility], [address] [place] [address], [id number], 15:10:20 unlisted lab - CBC w/o auto diff 122020 [facility], [address] [place] [address], 32177, 2 11:06:59 erythrocyte sedimentati on rate by westergren method 2020 [facility], [address] [place] [address], 81652, 2 11:58:05 C-reactive protein, quantitativ e, serum or plasma 2020 [facility], [address] [place] [address], 06970, 16:30:40 CMP, serum or plasma 2020 [facility], [address] [place] [address], 16159, 15:35:05 Referral None recorded. Procedures None recorded. Surgeries None recorded. Imaging None recorded. Medication Orders prednisone 1 mg tablet 2021 022 [id number], [address] [place], [address], 3 10:01:29 leucovorin calcium 10 mg tablet 2021 022 [id number], [address] [place], [address], 3 10:00:59 methotrexat e sodium (PF) 25 mg/mL injection solution 2020 021 [id number], [address] [place], [address], 3 10:01:25 Patient TargetsNo targets recorded. Patient InstructionsNo instructions recorded. Reason for Referral None Reported. Results Created Date Observation Date Name Description Value Unit Range Abnormal Flag Note LastModifiedBy Organization Detail LastModifiedTime 01/27/20 21 01/26/2021 CBC WBC 5.31 K/??L 4.23-9 .07 Not Available [address], [address], 01/26/2021 10:34:53 01/27/20 21 01/26/2021 CBC RBC 3.97 M/??L 4.63-6 .08 low Not Available [address], 316[address], 01/26/2021 10:34:53 01/27/20 21 01/26/2021 CBC HGB 13.1 g/dL 13.7-1 7.5 low Not Available [address], 41598, 01/26/2021 10:34:53 01/27/20 21 01/26/2021 CBC HCT 39.9 % 40.1-5 1.0 low Not Available [address], 36400, 01/26/2021 10:34:53 01/27/20 21 01/26/2021 CBC MCV 100.5 fL 79.0-9 2.2 high Not Available [address], 88776, 01/26/2021 10:34:53 01/27/20 21 01/26/2021 CBC MCH 33.0 pg 25.7-3 2.2 high Not Available [address], 99891, 01/26/2021 10:34:53 01/27/20 21 01/26/2021 CBC MCHC 32.8 g/dL 32.3-3 6.5 Not Available [address], 08829, 01/26/2021 10:34:53 01/27/20 21 01/26/2021 CBC plt 207 K/??L 163-33 7 Not Available [address], 39866, 01/26/2021 10:34:53 01/27/20 21 01/26/2021 CBC MPV 9.7 fL 9.4-12 .4 Not Available [address], 95822, 01/26/2021 10:34:53 01/27/20 21 01/26/2021 CBC neut% 74.9 % 34.0-6 7.9 high Not Available [address], 51734, 01/26/2021 10:34:53 01/27/20 21 01/26/2021 CBC neut# 3.98 1.78-5 .38 Not Available [address], 98075, 01/26/2021 10:34:53 01/27/20 21 01/26/2021 CBC lymph % 15.1 % 21.8-5 3.1 low Not Available [address], 66892, 01/26/2021 10:34:53 01/27/20 21 01/26/2021 CBC lymph # 0.80 K/??L 1.32-3 .57 low Not Available [address], 48312, 01/26/2021 10:34:53 01/27/20 21 01/26/2021 CBC mono% 6.6 % 5.3-12 .2 Not Available [address], 41235, 01/26/2021 10:34:53 01/27/20 21 01/26/2021 CBC mono# 0.35 0.30-0 .82 Not Available [address], 54144, 01/26/2021 10:34:53 01/27/20 21 01/26/2021 CBC eo% 2.3 % 0.8-7. 0 Not Available [address], 70884, 01/26/2021 10:34:53 01/27/20 21 01/26/2021 CBC eo# 0.12 0.04-0 .54 Not Available [address], 82811, 01/26/2021 10:34:53 01/27/20 21 01/26/2021 CBC baso% 0.9 % 0.2-1. 2 Not Available [address], 96008, 01/26/2021 10:34:53 01/27/20 21 01/26/2021 CBC baso# 0.05 0.00-0 .08 Not Available [address], 96249, 01/26/2021 10:34:53 01/27/20 21 01/26/2021 CBC RDW-CV 13.5 % 11.6-1 4.4 Not Available [address], 29697, 01/26/2021 10:34:53 01/27/20 21 01/26/2021 CBC Ig% 0.200 % 0.000- 1.500 Ig % >0.5 Indic ates possi ble Left Shift Not Available [address], 29290, 01/26/2021 10:34:53 01/27/20 21 01/26/2021 CBC Ig# 0.010 0.000- 0.093 Not Available [address], 00817, 01/26/2021 10:34:53 01/27/20 21 01/26/2021 CBC NRBC% 0.0 % 0.0-0. 2 Not Available [address], 53955, 01/26/2021 10:34:53 03/03/01/26/2021 CBC NRBC# 0.000 0.000- 0.012 Not Available [address], 14369, 01/26/2021 10:34:53 01/27/20 21 01/26/2021 hepat ic funct ion panel , serum total protein 6.1 g/dL 6.4-8. 2 low Not Available [address], 46848, 01/26/2021 12:44:41 01/27/20 21 01/26/2021 hepat ic funct ion panel , serum albumin 3.7 g/dL 3.4-5. 0 Not Available [address], 79302, 01/26/2021 12:44:41 01/27/20 21 01/26/2021 hepat ic funct ion panel , serum globulin 2.4 g/dL Not Available [address], 23546, 01/26/2021 12:44:41 01/27/20 21 01/26/2021 hepat ic funct ion panel , serum A/G 1.5 ratio 0.8-2. 0 Not Available [address], 02401, 01/26/2021 12:44:41 01/27/20 21 01/26/2021 hepat ic funct ion panel , serum total bilirubin 0.40 mg/dL 0.00-1 .00 Not Available [address], 35037, 01/26/2021 12:44:41 01/27/20 21 01/26/2021 hepat ic funct ion panel , serum direct bilirubin 0.10 mg/dL 0.00-0 .30 Not Available [address], 55650, 01/26/2021 12:44:41 01/27/20 21 01/26/2021 hepat ic funct ion panel , serum AST 28 U/L 0-37 Not Available [address], 79062, 01/26/2021 12:44:41 01/27/20 21 01/26/2021 hepat ic funct ion panel , serum ALT 34 U/L 6-63 Not Available [address], 68001, 01/26/2021 12:44:41 01/27/20 21 01/26/2021 hepat ic funct ion panel , serum alk. phos. 99 U/L 50-136 Not Available [address], 69300, 01/26/2021 12:44:41 01/27/20 21 01/26/2021 creat inine , serum or plasm a creatinine 0.6 mg/dL 0.8-1. 3 low Not Available [address], 43905, 01/26/2021 12:44:42 01/27/20 21 01/26/2021 creat inine , serum or plasm a GFR -non 140.0 mL/mi n Recom bessie d GFR by the Natio nal Kidne y Found ation >60 mL/mi n/1.7 3m2 - Mylene l <60 mL/mi n/1.7 3m2 - Chron ic Kidne y Disea se <15 mL/mi n/1.7 3m2 - Kidne y Failu re Not Available [address], 0[address]69, 01/26/2021 12:44:42 01/27/20 21 01/26/2021 creat inine , serum or plasm a GFR - if 169.4 mL/mi n For Afric an Ameri can patie nts: Resul ts Multi plied by 1.21 Not Available [address], 86999, 01/26/2021 12:44:42 01/27/20 21 01/26/2021 C-román ctive prote in, quant itati ve, serum or plasm a C-reactive protein -quant <2.0 mg/L 0.0-9. 0 < Not Available [address], 66155, 01/26/2021 14:26:01 05/11/20 21 05/11/2021 CBC WBC 6.33 K/??L 4.23-9 .07 Not Available [address], 32441, 05/11/2021 11:18:16 05/11/20 21 05/11/2021 CBC RBC 4.01 M/??L 4.63-6 .08 low Not Available [address], 74472, 05/11/2021 11:18:16 05/11/20 21 05/11/2021 CBC HGB 13.1 g/dL 13.7-1 7.5 low Not Available [address], 46249, 05/11/2021 11:18:16 05/11/20 21 05/11/2021 CBC HCT 40.5 % 40.1-5 1.0 Not Available [address], 90596, 05/11/2021 11:18:16 05/11/20 21 05/11/2021 CBC MCV 101.0 fL 79.0-9 2.2 high Not Available [address], 28484, 05/11/2021 11:18:16 05/11/20 21 05/11/2021 CBC MCH 32.7 pg 25.7-3 2.2 high Not Available [address], 47666, 05/11/2021 11:18:16 05/11/20 21 05/11/2021 CBC MCHC 32.3 g/dL 32.3-3 6.5 Not Available [address], 30691, 05/11/2021 11:18:16 05/11/20 21 05/11/2021 CBC plt 213 K/??L 163-33 7 Not Available [address], 74571, 05/11/2021 11:18:16 05/11/20 21 05/11/2021 CBC MPV 9.8 fL 9.4-12 .4 Not Available [address], 94421, 05/11/2021 11:18:16 05/11/20 21 05/11/2021 CBC neut% 73.6 % 34.0-6 7.9 high Not Available [address], 94085, 05/11/2021 11:18:16 05/11/20 21 05/11/2021 CBC neut# 4.66 1.78-5 .38 Not Available [address], 61166, 05/11/2021 11:18:16 05/11/20 21 05/11/2021 CBC lymph % 14.7 % 21.8-5 3.1 low Not Available [address], 60052, 05/11/2021 11:18:16 05/11/20 21 05/11/2021 CBC lymph # 0.93 K/??L 1.32-3 .57 low Not Available [address], 82833, 05/11/2021 11:18:16 05/11/20 21 05/11/2021 CBC mono% 8.1 % 5.3-12 .2 Not Available [address], 41035, 05/11/2021 11:18:16 05/11/20 21 05/11/2021 CBC mono# 0.51 0.30-0 .82 Not Available [address], 71525, 05/11/2021 11:18:16 05/11/20 21 05/11/2021 CBC eo% 2.5 % 0.8-7. 0 Not Available [address], 40320, 05/11/2021 11:18:16 05/11/20 21 05/11/2021 CBC eo# 0.16 0.04-0 .54 Not Available [address], 43383, 05/11/2021 11:18:16 05/11/20 21 05/11/2021 CBC baso% 0.8 % 0.2-1. 2 Not Available [address], 40185, 05/11/2021 11:18:16 05/11/20 21 05/11/2021 CBC baso# 0.05 0.00-0 .08 Not Available [address], 96043, 05/11/2021 11:18:16 05/11/20 21 05/11/2021 CBC RDW-CV 14.0 % 11.6-1 4.4 Not Available [address], 13051, 05/11/2021 11:18:16 05/11/20 21 05/11/2021 CBC Ig% 0.300 % 0.000- 1.500 Ig % >0.5 Indic ates possi ble Left Shift Not Available [address], 86353, 05/11/2021 11:18:16 05/11/20 21 05/11/2021 CBC Ig# 0.020 0.000- 0.093 Not Available [address], 65756, 05/11/2021 11:18:16 05/11/20 21 05/11/2021 CBC NRBC% 0.0 % 0.0-0. 2 Not Available [address], 14512, 05/11/2021 11:18:16 05/11/20 21 05/11/2021 CBC NRBC# 0.000 0.000- 0.012 Not Available [address], 67693, 05/11/2021 11:18:16 05/11/20 21 05/11/2021 retic count , blood reticulocyte count,auto 2.21 % 0.51-1 .81 high Not Available [address], 18628, 05/11/2021 11:43:00 05/11/20 21 05/11/2021 retic count , blood reticulocyte , absolute 0.0882 cells /uL 0.0260 -0.095 0 Not Available [address], 84066, 05/11/2021 11:43:00 05/11/20 21 05/11/2021 retic count , blood irf% 9.9 % 2.3-13 .4 Not Available [address], 98223, 05/11/2021 11:43:00 05/11/20 21 05/11/2021 retic count , blood ret-he 36.0 pg 28.2-3 5.7 high Not Available [address], 02303, 05/11/2021 11:43:00 05/11/20 21 05/11/2021 hepat ic funct ion panel , serum total protein 5.9 g/dL 6.4-8. 2 low Not Available [address], 61412, 05/11/2021 14:45:30 05/11/20 21 05/11/2021 hepat ic funct ion panel , serum albumin 3.6 g/dL 3.4-5. 0 Not Available [address], 98534, 05/11/2021 14:45:30 05/11/20 21 05/11/2021 hepat ic funct ion panel , serum globulin 2.3 g/dL Not Available [address], 64766, 05/11/2021 14:45:30 05/11/20 21 05/11/2021 hepat ic funct ion panel , serum A/G 1.6 ratio 0.8-2. 0 Not Available [address], 90789, 05/11/2021 14:45:30 05/11/20 21 05/11/2021 hepat ic funct ion panel , serum total bilirubin 0.60 mg/dL 0.00-1 .00 Not Available [address], 31448, 05/11/2021 14:45:30 05/11/20 21 05/11/2021 hepat ic funct ion panel , serum direct bilirubin 0.10 mg/dL 0.00-0 .30 Not Available [address], 52582, 05/11/2021 14:45:30 05/11/20 21 05/11/2021 hepat ic funct ion panel , serum AST 23 U/L 0-37 Not Available [address], 11041, 05/11/2021 14:45:30 05/11/20 21 05/11/2021 hepat ic funct ion panel , serum ALT 29 U/L 6-63 Not Available [address], 11029, 05/11/2021 14:45:30 05/11/20 21 05/11/2021 hepat ic funct ion panel , serum alk. phos. 88 U/L 50-136 Not Available [address], 40574, 05/11/2021 14:45:30 05/11/20 21 05/11/2021 creat inine , serum or plasm a creatinine 0.6 mg/dL 0.8-1. 3 low Not Available [address], 03342, 05/11/2021 14:45:31 05/11/20 21 05/11/2021 creat inine , serum or plasm a GFR -non 139.6 mL/mi n Recom bessie d GFR by the Natio nal Kidne y Found ation >60 mL/mi n/1.7 3m2 - Mylene l <60 mL/mi n/1.7 3m2 - Chron ic Kidne y Disea se <15 mL/mi n/1.7 3m2 - Kidne y Failu re Not Available [address], 11881, 05/11/2021 14:45:31 05/11/20 21 05/11/2021 creat inine , serum or plasm a GFR - if 168.9 mL/mi n For Afric an Ameri can patie nts: Resul ts Multi plied by 1.21 Not Available [address], 11037, 05/11/2021 14:45:31 05/11/20 21 05/17/2021 C-román ctive prote in, quant itati ve, serum or plasm a C-reactive protein -quant <2.0 mg/L 0.0-9. 0 < Not Available [address], 77767, 05/17/2021 13:14:00 05/11/20 21 05/19/2021 vitam in B12, serum vitamin B12 881 pg/mL 230-10 50 Not Available [address], 56144, 05/19/2021 13:34:11 05/11/20 21 05/19/2021 folat e, serum folate >20 NG/mL 3-16 high > Not Available [address], 26347, 05/19/2021 13:41:33 08/15/20 21 08/15/2021 CBC W/O AUTO DIFF WBC 4.80 K/??L 4.23-9 .07 Not Available [address], 51486, 08/15/2021 15:08:11 08/15/20 21 08/15/2021 CBC W/O AUTO DIFF RBC 4.13 M/??L 4.63-6 .08 low Not Available [address], 12992, 08/15/2021 15:08:11 08/15/20 21 08/15/2021 CBC W/O AUTO DIFF HGB 13.3 g/dL 13.7-1 7.5 low Not Available [address], 03247, 08/15/2021 15:08:11 08/15/20 21 08/15/2021 CBC W/O AUTO DIFF HCT 41.0 % 40.1-5 1.0 Not Available [address], 27882, 08/15/2021 15:08:11 08/15/20 21 08/15/2021 CBC W/O AUTO DIFF MCV 99.3 fL 79.0-9 2.2 high Not Available [address], 42803, 08/15/2021 15:08:11 08/15/20 21 08/15/2021 CBC W/O AUTO DIFF MCH 32.2 pg 25.7-3 2.2 Not Available [address], 79360, 08/15/2021 15:08:11 08/15/20 21 08/15/2021 CBC W/O AUTO DIFF MCHC 32.4 g/dL 32.3-3 6.5 Not Available [address], 93339, 08/15/2021 15:08:11 08/15/20 21 08/15/2021 CBC W/O AUTO DIFF plt 192 K/??L 163-33 7 Not Available [address], 72431, 08/15/2021 15:08:11 08/15/20 21 08/15/2021 CBC W/O AUTO DIFF RDW-CV 13.7 % 11.6-1 4.4 Not Available [address], 96562, 08/15/2021 15:08:11 08/15/20 21 08/15/2021 ESR sed rate 2.0 0.0-20 .0 Not Available [address], 73460, 08/15/2021 16:18:26 08/15/20 21 08/16/2021 COMP. METAB OLIC PANEL glucose 98 mg/dL 70-100 Not Available [address], 98631, 08/16/2021 12:05:18 08/15/20 21 08/16/2021 COMP. METAB OLIC PANEL BUN 12 mg/dL 7-18 Not Available [address], 08413, 08/16/2021 12:05:18 08/15/20 21 08/16/2021 COMP. METAB OLIC PANEL creatinine 0.7 mg/dL 0.8-1. 3 low Not Available [address], 14526, 08/16/2021 12:05:18 08/15/20 21 08/16/2021 COMP. METAB OLIC PANEL B/C 17.1 ratio Not Available [address], 98812, 08/16/2021 12:05:18 08/15/20 21 08/16/2021 COMP. METAB OLIC PANEL GFR -non 116.9 mL/mi n Recom bessie d GFR by the Natio nal Kidne y Found ation >60 mL/mi n/1.7 3m2 - Mylene l <60 mL/mi n/1.7 3m2 - Chron ic Kidne y Disea se <15 mL/mi n/1.7 3m2 - Kidne y Failu re Not Available [address], 82209, 08/16/2021 12:05:18 08/15/20 21 08/16/2021 COMP. METAB OLIC PANEL GFR - if 141.4 mL/mi n For Afric an Ameri divya patie nts: Resul ts Multi plied by 1.21 Not Available [address], 66846, 08/16/2021 12:05:18 08/15/20 21 08/16/2021 COMP. METAB OLIC PANEL sodium 142 mmol/ L 136-14 5 Not Available [address], 25125, 08/16/2021 12:05:18 08/15/20 21 08/16/2021 COMP. METAB OLIC PANEL potassium 4.8 mmol/ L 3.5-5. 1 Not Available [address], 10160, 08/16/2021 12:05:18 08/15/20 21 08/16/2021 COMP. METAB OLIC PANEL chloride 103 mmol/ L 96-107 Not Available [address], 81380, 08/16/2021 12:05:18 08/15/20 21 08/16/2021 COMP. METAB OLIC PANEL anion gap 9.2 5.0-15 .0 Not Available [address], 95279, 08/16/2021 12:05:18 08/15/20 21 08/16/2021 COMP. METAB OLIC PANEL CO2 30 mmol/ L 21-32 Not Available [address], 28942, 08/16/2021 12:05:18 08/15/20 21 08/16/2021 COMP. METAB OLIC PANEL calcium 8.9 mg/dL 8.5-10 .3 Not Available [address], 60075, 08/16/2021 12:05:18 08/15/20 21 08/16/2021 COMP. METAB OLIC PANEL total protein 6.4 g/dL 6.4-8. 2 Not Available [address], 17097, 08/16/2021 12:05:18 08/15/20 21 08/16/2021 COMP. METAB OLIC PANEL albumin 4.0 g/dL 3.4-5. 0 Not Available [address], 01441, 08/16/2021 12:05:18 08/15/20 21 08/16/2021 COMP. METAB OLIC PANEL globulin 2.4 g/dL Not Available [address], 19988, 08/16/2021 12:05:18 08/15/20 21 08/16/2021 COMP. METAB OLIC PANEL A/G 1.7 ratio 0.8-2. 0 Not Available [address], 80417, 08/16/2021 12:05:18 08/15/20 21 08/16/2021 COMP. METAB OLIC PANEL total bilirubin 0.50 mg/dL 0.00-1 .00 Not Available [address], 56957, 08/16/2021 12:05:18 08/15/20 21 08/16/2021 COMP. METAB OLIC PANEL AST 23 U/L 0-37 Not Available [address], 62274, 08/16/2021 12:05:18 08/15/20 21 08/16/2021 COMP. METAB OLIC PANEL ALT 32 U/L 6-63 Not Available [address], 48718, 08/16/2021 12:05:18 08/15/20 21 08/16/2021 COMP. METAB OLIC PANEL alk. phos. 93 U/L 50-136 Not Available [address], 16766, 08/16/2021 12:05:18 08/15/20 21 08/16/2021 C-ROMÁN CTIVE PROTE IN-QU ANTIT ATIVE C-reactive protein -quant <2.0 mg/L 0.0-9. 0 < Not Available [address], 74582, 08/16/2021 15:46:00 11/21/20 21 11/21/2021 CBC W/O AUTO DIFF WBC 5.08 K/??L 4.23-9 .07 Not Available [address], 60846, 11/21/2021 11:23:28 11/21/20 21 11/21/2021 CBC W/O AUTO DIFF RBC 3.98 M/??L 4.63-6 .08 low Not Available [address], 58393, 11/21/2021 11:23:28 11/21/20 21 11/21/2021 CBC W/O AUTO DIFF HGB 12.9 g/dL 13.7-1 7.5 low Not Available [address], 07766, 11/21/2021 11:23:28 11/21/20 21 11/21/2021 CBC W/O AUTO DIFF HCT 40.4 % 40.1-5 1.0 Not Available [address], 37848, 11/21/2021 11:23:28 11/21/20 21 11/21/2021 CBC W/O AUTO DIFF MCV 101.5 fL 79.0-9 2.2 high Not Available [address], 60897, 11/21/2021 11:23:28 11/21/20 21 11/21/2021 CBC W/O AUTO DIFF MCH 32.4 pg 25.7-3 2.2 high Not Available [address], 82259, 11/21/2021 11:23:28 11/21/20 21 11/21/2021 CBC W/O AUTO DIFF MCHC 31.9 g/dL 32.3-3 6.5 low Not Available [address], 70642, 11/21/2021 11:23:28 11/21/20 21 11/21/2021 CBC W/O AUTO DIFF plt 204 K/??L 163-33 7 Not Available [address], 07874, 11/21/2021 11:23:28 11/21/20 21 11/21/2021 CBC W/O AUTO DIFF RDW-CV 13.4 % 11.6-1 4.4 Not Available [address], 93275, 11/21/2021 11:23:28 11/21/20 21 11/21/2021 ESR sed rate 2.0 0.0-20 .0 Not Available [address], 25911, 11/21/2021 12:03:22 11/21/20 21 11/21/2021 C-ROMÁN CTIVE PROTE IN-QU ANTIT ATIVE C-reactive protein -quant <2.0 mg/L 0.0-9. 0 < crp verif ied, cmd Not Available [address], 72407, 11/21/2021 15:10:20 11/21/20 21 11/21/2021 COMP. METAB OLIC PANEL glucose 108 mg/dL 70-100 high Not Available [address], 94366, 11/21/2021 15:12:05 11/21/20 21 11/21/2021 COMP. METAB OLIC PANEL BUN 12 mg/dL 7-18 Not Available [address], 74757, 11/21/2021 15:12:05 11/21/20 21 11/21/2021 COMP. METAB OLIC PANEL creatinine 0.7 mg/dL 0.8-1. 3 low Not Available [address], 45911, 11/21/2021 15:12:05 11/21/20 21 11/21/2021 COMP. METAB OLIC PANEL B/C 17.1 ratio Not Available [address], 99487, 11/21/2021 15:12:05 11/21/20 21 11/21/2021 COMP. METAB OLIC PANEL sodium 142 mmol/ L 136-14 5 Not Available [address], 56853, 11/21/2021 15:12:05 11/21/20 21 11/21/2021 COMP. METAB OLIC PANEL potassium 4.2 mmol/ L 3.5-5. 1 Not Available [address], 61613, 11/21/2021 15:12:05 11/21/20 21 11/21/2021 COMP. METAB OLIC PANEL chloride 104 mmol/ L 96-107 Not Available [address], 35543, 11/21/2021 15:12:05 11/21/20 21 11/21/2021 COMP. METAB OLIC PANEL anion gap 9.3 5.0-15 .0 Not Available [address], 42294, 11/21/2021 15:12:05 11/21/20 21 11/21/2021 COMP. METAB OLIC PANEL CO2 29 mmol/ L 21-32 Not Available [address], 20324, 11/21/2021 15:12:05 11/21/20 21 11/21/2021 COMP. METAB OLIC PANEL calcium 9.0 mg/dL 8.5-10 .3 Not Available [address], 04574, 11/21/2021 15:12:05 11/21/20 21 11/21/2021 COMP. METAB OLIC PANEL total protein 6.1 g/dL 6.4-8. 2 low Not Available [address], [address], 11/21/2021 15:12:05 11/21/20 21 11/21/2021 COMP. METAB OLIC PANEL albumin 3.7 g/dL 3.4-5. 0 Not Available [address], [address], 11/21/2021 15:12:05 11/21/20 21 11/21/2021 COMP. METAB OLIC PANEL globulin 2.4 g/dL Not Available [address], [address], 11/21/2021 15:12:05 11/21/20 21 11/21/2021 COMP. METAB OLIC PANEL A/G 1.5 ratio 0.8-2. 0 Not Available [address], [address], 11/21/2021 15:12:05 11/21/20 21 11/21/2021 COMP. METAB OLIC PANEL total bilirubin 0.40 mg/dL 0.00-1 .00 Not Available [address], [address], 11/21/2021 15:12:05 11/21/20 21 11/21/2021 COMP. METAB OLIC PANEL AST 24 U/L 0-37 Not Available [address], [address], 11/21/2021 15:12:05 11/21/20 21 11/21/2021 COMP. METAB OLIC PANEL ALT 31 U/L 6-63 Not Available [address], [address], 11/21/2021 15:12:05 11/21/20 21 11/21/2021 COMP. METAB OLIC PANEL alk. phos. 80 U/L 50-136 Not Available [address], [address], 11/21/2021 15:12:05 11/21/20 21 11/21/2021 LIPID PANEL cholesterol 162 mg/dL <200 mg/dl Mynor able 200-2 39 mg/dl Borde rline High >240 mg/dl High Not Available [address], [address], 11/21/2021 15:34:55 11/21/20 21 11/21/2021 LIPID PANEL triglyceride s 67 mg/dL <150 mg/dL Mylene l 150-1 99 mg/dL Borde rline High 200-4 99 mg/dL High >500 mg/dL Very High Not Available [address], [address], 11/21/2021 15:34:55 11/21/20 21 11/21/2021 LIPID PANEL direct HDL 58 mg/dL <40 mg/dl - Major Risk for CHD >60 mg/dl - Negat mena Risk for CHD Not Available [address], [address], 11/21/2021 15:34:55 11/21/20 21 11/21/2021 LDL - CALCU LATED LDL - calculated 90.6 RISK CATEG ORY LDL GOAL _ CHD or CHD Risk Equiv alent s <100 mg/dl (10-y ear risk >20%) 2+ Risk Facto rs <130 mg/dl (10-y ear risk <= 20%) 0-1 Risk Facto r??? <160 mg/dl ??? Almos t all peopl e with 0-1 risk facto r have a 10 year risk <10%, thus 10 year risk asses ment in peopl e with 0-1 risk facto r is not serene mcmanus. Not Available [address], [address], 11/21/2021 15:35:00 02/15/20 22 02/14/2022 CBC W/O AUTO DIFF WBC 8.26 K/??L 4.23-9 .07 Not Available [address], [address], 02/14/2022 11:06:59 02/15/20 22 02/14/2022 CBC W/O AUTO DIFF RBC 4.09 M/??L 4.63-6 .08 low Not Available [address], [address], 02/14/2022 11:06:59 02/15/20 22 02/14/2022 CBC W/O AUTO DIFF HGB 13.4 g/dL 13.7-1 7.5 low Not Available [address], [address], 02/14/2022 11:06:59 02/15/20 22 02/14/2022 CBC W/O AUTO DIFF HCT 41.9 % 40.1-5 1.0 Not Available [address], [address], 02/14/2022 11:06:59 02/15/20 22 02/14/2022 CBC W/O AUTO DIFF MCV 102.4 fL 79.0-9 2.2 high Not Available [address], [address], 02/14/2022 11:06:59 02/15/20 22 02/14/2022 CBC W/O AUTO DIFF MCH 32.8 pg 25.7-3 2.2 high Not Available [address], [address], 02/14/2022 11:06:59 02/15/20 22 02/14/2022 CBC W/O AUTO DIFF MCHC 32.0 g/dL 32.3-3 6.5 low Not Available [address], [address], 02/14/2022 11:06:59 02/15/2002/14/2022 CBC W/O AUTO DIFF plt 190 K/??L 163-33 7 Not Available [address], [address], 02/14/2022 11:06:59 02/15/20 22 02/14/2022 CBC W/O AUTO DIFF RDW-CV 14.0 % 11.6-1 4.4 Not Available [address], [address], 02/14/2022 11:06:59 02/15/20 22 02/14/2022 ESR sed rate 2.0 0.0-20 .0 Not Available [address], [address], 02/14/2022 11:58:05 02/15/202022 COMP. METAB OLIC PANEL glucose 123 mg/dL 70-100 high Not Available [address], [address], 02/14/2022 15:35:05 02/15/20 22 02/14/2022 COMP. METAB OLIC PANEL BUN 16 mg/dL 7-18 Not Available [address], [address], 02/14/2022 15:35:05 02/15/20 22 02/14/2022 COMP. METAB OLIC PANEL creatinine 0.7 mg/dL 0.8-1. 3 low Not Available [address], [address], 02/14/2022 15:35:05 02/15/20 22 02/14/2022 COMP. METAB OLIC PANEL B/C 22.9 ratio Not Available [address], [address], 02/14/2022 15:35:05 02/15/20 22 02/14/2022 COMP. METAB OLIC PANEL GFR >=60ML /MIN mL/mi n normal >=60m L/min - Mylene l or midly reduc ed <60mL /min- Decre ased kidne y funct ion <15mL /min - Kidne y failu re [facility] calcu lates estim ated Glome rular Filtr ation Rate (eGFR ) using the Chron ic Kidne y Disea se Epide miolo gy Colla borat ion (CKD- EPI) Equat ion (Lisha r et. al 2020) as recom bessie d by the [facility] n[facility] y [facility] ation . eGFR is based on age, serum creat inine , and sex. CKD-E PI does not calcu late eGFR by race, does not apply to child willie (age <18 years ), and shoul d not be used in pregn valente. Not Available [address], [address], 02/14/2022 15:35:05 02/15/20 22 02/14/2022 COMP. METAB OLIC PANEL sodium 144 mmol/ L 136-14 5 Not Available [address], [address], 02/14/2022 15:35:05 02/15/20 22 02/14/2022 COMP. METAB OLIC PANEL potassium 4.5 mmol/ L 3.5-5. 1 Not Available [address], [address], 02/14/2022 15:35:05 02/15/20 22 02/14/2022 COMP. METAB OLIC PANEL chloride 109 mmol/ L 96-107 high Not Available [address], [address], 02/14/2022 15:35:05 02/15/20 22 02/14/2022 COMP. METAB OLIC PANEL anion gap 5.7 5.0-15 .0 Not Available [address], [address], 02/14/2022 15:35:05 02/15/20 22 02/14/2022 COMP. METAB OLIC PANEL CO2 29 mmol/ L 21-32 Not Available [address], [address], 02/14/2022 15:35:05 02/15/20 22 02/14/2022 COMP. METAB OLIC PANEL calcium 8.6 mg/dL 8.5-10 .3 Not Available [address], [address], 02/14/2022 15:35:05 02/15/20 22 02/14/2022 COMP. METAB OLIC PANEL total protein 6.0 g/dL 6.4-8. 2 low Not Available [address], [address], 02/14/2022 15:35:05 02/15/20 22 02/14/2022 COMP. METAB OLIC PANEL albumin 3.6 g/dL 3.4-5. 0 Not Available [address], [address], 02/14/2022 15:35:05 02/15/20 22 02/14/2022 COMP. METAB OLIC PANEL globulin 2.4 g/dL Not Available [address], [address], 02/14/2022 15:35:05 02/15/20 22 02/14/2022 COMP. METAB OLIC PANEL A/G 1.5 ratio 0.8-2. 0 Not Available [address], [address], 02/14/2022 15:35:05 02/15/20 22 02/14/2022 COMP. METAB OLIC PANEL total bilirubin 0.60 mg/dL 0.00-1 .00 Not Available [address], [address], 02/14/2022 15:35:05 02/15/20 22 02/14/2022 COMP. METAB OLIC PANEL AST 21 U/L 0-37 Not Available [address], [address], 02/14/2022 15:35:05 02/15/20 22 02/14/2022 COMP. METAB OLIC PANEL ALT 24 U/L 6-63 Not Available [address], [address], 02/14/2022 15:35:05 02/15/20 22 02/14/2022 COMP. METAB OLIC PANEL alk. phos. 84 U/L 50-136 Not Available [address], [address], 02/14/2022 15:35:05 02/15/20 22 02/14/2022 C-ROMÁN CTIVE PROTE IN-QU ANTIT ATIVE C-reactive protein -quant <2.0 mg/L 0.0-9. 0 < Test resul t verif ied by repea t Not Available [address], [address], 02/14/2022 16:30:40 08/15/20 22 08/15/2022 CBC WBC 5.47 K/??L 4.23-9 .07 Not Available [address], [address], 08/15/2022 12:38:32 08/15/20 22 08/15/2022 CBC RBC 3.92 M/??L 4.63-6 .08 low Not Available [address], [address], 08/15/2022 12:38:32 08/15/20 22 08/15/2022 CBC HGB 12.8 g/dL 13.7-1 7.5 low Not Available [address], [address], 08/15/2022 12:38:32 08/15/20 22 08/15/2022 CBC HCT 40.5 % 40.1-5 1.0 Not Available [address], [address], 08/15/2022 12:38:32 08/15/20 22 08/15/2022 CBC MCV 103.3 fL 79.0-9 2.2 high Not Available [address], [address], 08/15/2022 12:38:32 08/15/20 22 08/15/2022 CBC MCH 32.7 pg 25.7-3 2.2 high Not Available [address], [address], 08/15/2022 12:38:32 08/15/20 22 08/15/2022 CBC MCHC 31.6 g/dL 32.3-3 6.5 low Not Available [address], [address], 08/15/2022 12:38:32 08/15/20 22 08/15/2022 CBC plt 202 K/??L 163-33 7 Not Available [address], [address], 08/15/2022 12:38:32 08/15/20 22 08/15/2022 CBC MPV 9.4 fL 9.4-12 .4 Not Available [address], [address], 08/15/2022 12:38:32 08/15/20 22 08/15/2022 CBC neut% 69.9 % 34.0-6 7.9 high Not Available [address], [address], 08/15/2022 12:38:32 08/15/20 22 08/15/2022 CBC neut# 3.83 1.78-5 .38 Not Available [address], [address], 08/15/2022 12:38:32 08/15/20 22 08/15/2022 CBC lymph % 15.0 % 21.8-5 3.1 low Not Available [address], [address], 08/15/2022 12:38:32 08/15/20 22 08/15/2022 CBC lymph # 0.82 K/??L 1.32-3 .57 low Not Available [address], [address], 08/15/2022 12:38:32 08/15/20 22 08/15/2022 CBC mono% 9.0 % 5.3-12 .2 Not Available [address], [address], 08/15/2022 12:38:32 08/15/20 22 08/15/2022 CBC mono# 0.49 0.30-0 .82 Not Available [address], [address], 08/15/2022 12:38:32 08/15/20 22 08/15/2022 CBC eo% 4.6 % 0.8-7. 0 Not Available [address], [address], 08/15/2022 12:38:32 08/15/20 22 08/15/2022 CBC eo# 0.25 0.04-0 .54 Not Available [address], [address], 08/15/2022 12:38:32 08/15/20 22 08/15/2022 CBC baso% 1.3 % 0.2-1. 2 high Not Available [address], [address], 08/15/2022 12:38:32 08/15/20 22 08/15/2022 CBC baso# 0.07 0.00-0 .08 Not Available [address], [address], 08/15/2022 12:38:32 08/15/20 22 08/15/2022 CBC RDW-CV 14.3 % 11.6-1 4.4 Not Available [address], [address], 08/15/2022 12:38:32 08/15/20 22 08/15/2022 CBC Ig% 0.200 % 0.000- 1.500 Ig % >0.5 Indic ates possi ble Left Shift Not Available [address], [address], 08/15/2022 12:38:32 08/15/20 22 08/15/2022 CBC Ig# 0.010 0.000- 0.093 Not Available [address], [address], 08/15/2022 12:38:32 08/15/20 22 08/15/2022 CBC NRBC% 0.0 % 0.0-0. 2 Not Available [address], [address], 08/15/2022 12:38:32 08/15/20 22 08/15/2022 CBC NRBC# 0.000 0.000- 0.012 Not Available [address], [address], 08/15/2022 12:38:32 08/15/20 22 08/15/2022 COMP. METAB OLIC PANEL glucose 117 mg/dL 70-100 high Not Available [address], [address], 08/15/2022 14:59:25 08/15/20 22 08/15/2022 COMP. METAB OLIC PANEL BUN 17 mg/dL 7-18 Not Available [address], [address], 08/15/2022 14:59:25 08/15/20 22 08/15/2022 COMP. METAB OLIC PANEL creatinine 0.7 mg/dL 0.8-1. 3 low Not Available [address], [address], 08/15/2022 14:59:25 08/15/20 22 08/15/2022 COMP. METAB OLIC PANEL B/C 24.3 ratio Not Available [address], [address], 08/15/2022 14:59:25 08/15/20 22 08/15/2022 COMP. METAB OLIC PANEL GFR >=60ML /MIN mL/mi n normal >=60m L/min - Mylene l or midly reduc ed <60mL /min- Decre ased kidne y funct ion <15mL /min - Kidne y failu re [facility] calcu lates estim ated Glome rular Filtr ation Rate (eGFR ) using the Chron ic Kidne y Disea se Epide miolo gy Colla borat ion (CKD- EPI) Equat ion (Lisha rodgers et. al 2020) as recom bessie d by the [facility] . eGFR is based on age, serum creat inine , and sex. CKD-E PI does not calcu late eGFR by race, does not apply to child willie (age <18 years ), and shoul d not be used in pregn valente. Not Available [address], [address], 08/15/2022 14:59:25 08/15/20 22 08/15/2022 COMP. METAB OLIC PANEL sodium 141 mmol/ L 136-14 5 Not Available [address], [address], 08/15/2022 14:59:25 08/15/20 22 08/15/2022 COMP. METAB OLIC PANEL potassium 4.3 mmol/ L 3.5-5. 1 Not Available [address], [address], 08/15/2022 14:59:25 08/15/20 22 08/15/2022 COMP. METAB OLIC PANEL chloride 105 mmol/ L 96-107 Not Available [address], [address], 08/15/2022 14:59:25 08/15/20 22 08/15/2022 COMP. METAB OLIC PANEL anion gap 5.3 5.0-15 .0 Not Available [address], [address], 08/15/2022 14:59:25 08/15/20 22 08/15/2022 COMP. METAB OLIC PANEL CO2 31 mmol/ L 21-32 Not Available [address], [address], 08/15/2022 14:59:25 08/15/20 22 08/15/2022 COMP. METAB OLIC PANEL calcium 8.8 mg/dL 8.5-10 .3 Not Available [address], [address], 08/15/2022 14:59:25 08/15/20 22 08/15/2022 COMP. METAB OLIC PANEL total protein 6.1 g/dL 6.4-8. 2 low Not Available [address], [address], 08/15/2022 14:59:25 08/15/20 22 08/15/2022 COMP. METAB OLIC PANEL albumin 3.7 g/dL 3.4-5. 0 Not Available [address], [address], 08/15/2022 14:59:25 08/15/20 22 08/15/2022 COMP. METAB OLIC PANEL globulin 2.4 g/dL Not Available [address], [address], 08/15/2022 14:59:25 08/15/20 22 08/15/2022 COMP. METAB OLIC PANEL A/G 1.5 ratio 0.8-2. 0 Not Available [address], [address], 08/15/2022 14:59:25 08/15/20 22 08/15/2022 COMP. METAB OLIC PANEL total bilirubin 0.50 mg/dL 0.00-1 .00 Not Available [address], [address], 08/15/2022 14:59:25 08/15/20 22 08/15/2022 COMP. METAB OLIC PANEL AST 21 U/L 0-37 Not Available [address], [address], 08/15/2022 14:59:25 08/15/20 22 08/15/2022 COMP. METAB OLIC PANEL ALT 26 U/L 6-63 Not Available [address], [address], 08/15/2022 14:59:25 08/15/20 22 08/15/2022 COMP. METAB OLIC PANEL alk. phos. 89 U/L 50-136 Not Available [address], [address], 08/15/2022 14:59:25 08/15/20 22 08/15/2022 C-ROMÁN CTIVE PROTE IN-QU ANTIT ATIVE C-reactive protein -quant <2.0 mg/L 0.0-9. 0 < Not Available [address], [address], 08/15/2022 15:32:16 08/15/20 22 08/15/2022 ESR sed rate 4.0 0.0-20 .0 Not Available [address], [address], 08/15/2022 16:19:31 Result Notes None recorded. Problems Name Problem SNOMED Code Status Onset Date Resolution Date Notes Provider Name and Address Organization Details Recorded Time Inflammato ry polyarthro ila 059259642 Active Not Available [facility] 14:34:21 Knee pain Active Not Available [facility] 14:34:21 Knee joint effusion 106413693 Active Not Available [facility] 14:34:21 Degenerati ve joint disease of hand 12446320 Active Not Available [facility] 14:34:21 Ankle pain 473173726 Active Not Available [facility] 14:34:21 Long-term drug therapy Active 2015 Not Available [facility] 1 14:34:21 Backache 408282889 Completed 200210/15/2013 Not Available [facility] 3 02:01:13 Residual foreign body in soft tissue 0490128 Completed 200210/15/2013 Not Available [facility] 3 02:04:18 Problem Notes None recorded. Procedures Surgical History Date Name Laterality Status Provider Name and Address Organization Details Recorded Time 7 Generic Procedure Template completed Nba Morrison MD [address] [place] [address], [phone], [facility] [place] 09:21:47 7 Generic Procedure Template completed Nba Morrison MD [address] [place] [address], [phone], [facility] [place] 04/18/2017 10:14:31 6 Knee (Right) Injection completed Nba Morrison MD [address] [place] [address], [phone], [facility] [place] 10/17/2016 09:16:30 6 Generic Procedure Template completed Nba Morrison MD [address] [place] [address], [phone], [facility] [place] 07/11/2016 13:11:05 6 Generic Procedure Template completed Nba Morrison MD [address] [place] [address], [phone], [facility] [place] 04/09/2016 09:17:14 5 Generic Procedure Template completed Nba Morrison MD [address] [place] [address], [phone], [facility] [place] 08/31/2015 07:57:49 5 Knee (Right) Injection completed Nba Morrison MD [address] [place] [address], [phone], [facility] [place] 08/31/2015 07:57:49 Hip Replacement completed Nba Morrison MD [address] [place] [address], [phone], [facility] [place] 07/27/2015 07:43:59 Knee Replacement completed Nba Morrison MD [address] [place] [address], [phone], [facility] [place] 07/27/2015 07:43:59 Imaging Results None recorded. Procedure Notes None recorded. Medical Equipment None Reported. Allergies No known drug allergies Medications Name Sig Start Date Stop Date Status Note LastModified by Organization Details LastModified Time Prescript ion - Prior Authoriza tion Request 01/16 completed Not Available Not Available Not Available amoxicill in 500 mg capsule TAKE 1 CAPSULE BY MOUTH 3 TIMES A DAY 09/03 completed Not Available Not Available Not Available atorvasta tin 20 mg tablet TAKE 1 TABLET BY MOUTH EVERY DAY 05/15 completed Not Available Not Available Not Available ofloxacin 0.3 % eye drops once daily 02/20 completed Not Available Not Available Not Available prednison e 5 mg tablet 1 po qd 04/17 completed Not Available Not Available Not Available acetamino phen 300 mg-codein e 30 mg tablet 07/24 completed Not Available Not Available Not Available leucovori n calcium 10 mg tablet TAKE ONE TABLET THE DAY AFTER THE METHOTRE XATE 05/15 completed Not Available Not Available Not Available methotrex ate sodium 25 mg/mL injection solution INJECT 0.8 ML EVERY WEEK 05/14 completed duplicat e Not Available Not Available Not Available peg-elect rolyte solution 420 gram oral solution 07/24 completed Not Available Not Available Not Available tramadol 50 mg tablet TAKE 1 TABLET BY MOUTH EVERY DAY NEEDED 05/15 completed Not Available Not Available Not Available ketorolac 0.5 % eye drops getting cataract surgery next week 05/13/19, will start next week 08/15 completed Not Available Not Available Not Available oxycodone -acetamin ophen 5 mg-325 mg tablet TAKE 1 TABLET BY MOUTH EVERY DAY NEEDED 05/15 completed Not Available Not Available Not Available famotidin e 20 mg tablet TAKE 1 TABLET BY MOUTH EVERYDAY AT BEDTIME 05/15 completed Not Available Not Available Not Available prednisol one acetate 1 % eye drops,ag pension once daily; finishes 02/20/1905/13 completed Not Available Not Available Not Available methotrex ate sodium 2.5 mg tablet 8 tabs po weekly 01/16 completed Not Available Not Available Not Available trazodone 100 mg tablet Take 1 tablet every day by oral route. 05/13 completed pt. using gabapent in instead Not Available Not Available Not Available prednison e 1 mg tablet TAKE 3 TABLETS BY MOUTH EVERY DAY active Not Available Not Available No t Available diclofena c sodium 75 mg tablet,de layed release 04/17 completed Not Available Not Available Not Available folic acid 1 mg tablet TAKE 2 TABLETS BY MOUTH EVERY DAYMED NOT COVERED BY INS 05/15 completed Deny - Prescrib er not associat ed with this practice Not Available Not Available Not Available gabapenti n 100 mg capsule TAKE 3 CAPSULES BY MOUTH EVERY DAY AT BEDTIME 05/15 completed Not Available Not Available Not Available oxycodone 5 mg tablet Take 1 tablet as needed by oral route. 01/16 completed Not Available Not Available Not Available methotrex ate sodium (PF) 25 mg/mL injection solution INJECT 0.8 ML EVERY WEEK 05/15 completed Not Available Not Available Not Available Aspir-81 1 tab daily 08/15 completed Not Available Not Available Not Available Tylenol-C odeine No.2 01/16 completed Not Available Not Available Not Available Prevnar 13 (PF) 0.5 mL intramusc ular syringe TO BE ADMINIST ERED BY PHARMACI ST FOR IMMUNIZA TION 01/16 completed Not Available Not Available Not Available Shingrix (PF) 50 mcg/0.5 mL intramusc ular suspensio n, kit PHARMACY ADMINIST ERED 05/15 completed Pt received 2 doses [facility]: 09/16/20 and 12/03/19 21 Not Available Not Available Not Available Fluad Quad (65yr up)(PF) 60 mcg (15 mcg x 4)/0.5mL IM syringe PHARMACY ADMINIST ERED 09/03 completed Not Available Not Available Not Available Vitals Date Recorded Body height Body mass index (BMI) Body weight Provider Name and Address Organization Details Last Updated DateTime 12/31/2020 180.34 cm 23 kg/m2 83722.74 g Darline Kelly LPN [facility] 12/31/2020 09:18:04 Date Recorded Body height Body mass index (BMI) Body weight Systolic blood pressure Diastolic blood pressure Provider Name and Address Organization Details Last Updated DateTime 04/12/2021 180.34 cm 23.3 kg/m2 62356.93 g 120 mm[Hg] 72 mm[Hg] Darline Kelly [employer] [facility] 09:13:11 Date Recorded Body height Body mass index (BMI) Body weight Provider Name and Address Organization Details Last Updated DateTime 08/15/2021 180.34 cm 23.3 kg/m2 15000.93 g Darline Kelly [employer] [facility] 08/15/2021 12:03:14 Date Recorded Body height Provider Name an d Address Organization Details Last Updated DateTime 12/06/2021 180.34 cm Yuni Cohen LPN [facility] 12/06/2021 09:43:23 Date Recorded Body height Body mass index (BMI) Body weight Provider Name and Address Organization Details Last Updated DateTime 08/09/2022 180.34 cm 23.3 kg/m2 83990.93 g Karla Hemphill LPN [facility] 08/09/2022 09:50:53 Social History Question Answer Notes LastModified by Organizat ion Details LastModified Time Tobacco Smoking Status Former Smoker Nikos Calvert LPN [facility] 07/26/2015 09:11:55 What Is Your Level Of Alcohol Consumption? None [email or web address] Information not available 07/26/2015 How Much Tobacco Do You Chew? 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 6-10yearssin celastcigare tte [email or web address] Information not available 07/26/2015 Live Alone Or With Others? Alone Information not available 07/27/2015 Marital Status Information not available 07/27/2015 What Was The Date Of Your Most Recent Tobacco Screening? 05/13/2019 Information not available 06/18/2019 Sex: Unknown Functional Status None recorded. Mental Status None recorded. Family History Relationship Description Onset Age of this Age Resolved Age Notes LastModified by Organization Details LastModified Time Sister Rheumatoid arthritis Not available 2014 07:43:59 Brother Rheumatoid arthritis Not available 2014 07:43:59 Medical History Condition Response Hyperlipidemia Y Rheumatoid Arthritis Y EYE Immunizations Vaccine Type Date Status Note Provider Nam e and Address Organization Details Recorded Time Influenza, split virus, quadrivalent, preservative 7 completed JONATAN Nye [facility] 10/16/2017 08:41:45 Influenza, split virus, quadrivalent, preservative 8 completed JONATAN Nye [facility] 02/20/2019 10:33:54 Influenza, split virus, quadrivalent, preservative 0 completed JONATAN England [facility] 09/03/2020 08:33:35 COVID-19, mRNA, LNP-S, PF, 100 mcg/0.5mL dose or 50 mcg/0.25mL dose 1 completed JONATAN England [facility] 04/12/2021 09:17:56 COVID-19, mRNA, LNP-S, PF, 100 mcg/0.5mL dose or 50 mcg/0.25mL dose 1 completed JONATAN England [facility] 04/12/2021 09:18:15 Past Encounters Encounter ID Performer Location Encounter Start Date Encounter Closed Date Diagnosis/Indication Diagnosis SNOMED-CT Code Diagnosis ICD10 Code Diagnosis Note [id number] Radiology , [address] [place] [address] 04/30/2003 10:10:12 12/16/2008 02:02:29 [id number] Radiology , [address] [place] [address] 06/04/2003 09:55:59 12/16/2008 02:02:29 [id number] [facility], [address] [place] [address] 07/26/2015 08:32:08 07/27/2015 12:44:24 Inflammatory polyarthropathy [id number] This patient has a symmetrica l, inflammato ry polyarthri tis. Onset was about 6 months ago. There was a weakly positive rheumatoid factor. He has a strong family history of rheumatoid arthritis. I am reasonably sure that the diagnosis here is indeed rheumatoid arthritis. We discussed the diagnosis. Discussed treatment plan. Recent x-rays showed no erosive disease. As he is quite symptomati c, I will have him start on prednisone as bridging therapy . He will start at 20 mg and taper down to just 5 mg over the next 2-3 weeks. Additional ly, he will start on methotrexa te 15 mg weekly with concurrent folic acid. He has a prior history of alcohol abuse, but no longer drinks and never has had any serious liver problems. He will hold on the diclofenac for now. Baseline labs and x-ray will be checked today. I will want to see him again in 5 weeks, probably increase the methotrexa te. [id number] [facility], [address] [place] [address] 08/30/2015 09:26:01 08/30/2015 10:08:46 Inflammatory polyarthropathy [id number] M06.4 This patient has a symmetrica l, inflammato ry polyarthri tis. Onset was about 6 months ago. There was a weakly positive rheumatoid factor, but neg on repeat and neg CCP. He has a strong family history of rheumatoid arthritis. I am reasonably sure that the diagnosis here is indeed rheumatoid arthritis. There has been some improvemen t on low-dose prednisone plus the methotrexa te. There is, however, definite residual synovitis. Feet to most symptomati c joints will be injected today. I have instructed him to increase methotrexa te to 20 mg weekly, continue the prednisone at 5 mg daily, continue folic acid. Labs will be updated today and I want to see him again in 6 weeks for reevaluati on. Knee pain 97288043 M25.5 61 Describes swelling, stiffness but also some occasional buckling type symptoms. We should treat the inflammato ry component with local injection, but I imagine there is also some degenerati ve arthritis as well. Knee joint effusion 2022 40605 M25.461 Symptomati c right knee effusion. For diagnostic aspiration and injection today. See procedure note. 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 This is his most symptomati c joint today and will be injected locally. See procedure note. Long-term drug therapy [id number] Z79.899 Pt on mcfp MTX. Reviewed recent labs. No signs or symptoms of toxicity. Tolerating well. Continue monitor labs. Continue folate/mercedes covorin supplement [id number] Nba Morrison MD [facility], [address] [place] [address] 10/11/2015 08:30:56 10/11/2015 09:13:28 Inflammatory polyarthropathy [id number] M06.4 This patient has a symmetrica l, inflammato ry polyarthri tis. Onset was about 6 months ago. There was a weakly positive rheumatoid factor, but neg on repeat and neg CCP. He has a strong family history of rheumatoid arthritis. I am reasonably sure that the diagnosis here is indeed rheumatoid arthritis. There has been considerab le improvemen t on low-dose prednisone plus the methotrexa te. There is, however, definite residual synovitis. I have instructed him to continueme thotrexate to 20 mg weekly (change to liquid to save money), continue the prednisone at 5 mg daily, continue folic acid. Labs will be updated today and I want to see him again in 3 mo for reevaluati on, sooner if symptoms get any worse. We may need to add additional DMARD. Long-term drug therapy 141602799 Z79.899 Pt on predatory animal exterminator MTX. Reviewed recent labs. No signs or symptoms of toxicity. Tolerating well. Continue monitor labs. Continue folate/mercedes covorin supplement Knee pain 76692435 M25.5 61 Describes swelling, stiffness but also some occasional buckling type symptoms. Injection last time only helped for 2 weeks. Some inflammati on, but there is also some degenerati ve arthritis as well. [id number] Nba Morrison MD Rheumatol [facility] [place], [facility] [address] [place] [address] 01/10/2016 08:24:38 01/10/2016 09:02:48 Inflammatory polyarthropathy [id number] M06.4 This patient has a symmetrica l, inflammato ry polyarthri tis. Onset was about 9 months ago. There was a weakly positive rheumatoid factor, but neg on repeat and neg CCP. He has a strong family history of rheumatoid arthritis. I am reasonably sure that the diagnosis here is indeed rheumatoid arthritis. There has been considerab le improvemen t on low-dose prednisone plus the methotrexa te. There is, however, definite residual synovitis. I have instructed him to continue methotrexa te to 20 mg weekly (changed to liquid to save money), continue the prednisone at 5 mg daily, continue folic acid. We discussed adding additional medication , specifical ly discussed LEF. Cost might be an issue. He wanted to wait. Will check x rays hands and wrists and [place] [facility] [place] If clear progressio n of erosive disease, will push him to try the LEF. Labs will be updated today and I want to see him again in 3 mo for reevaluati on, sooner if symptoms get any worse. Knee joint effusion 2022 16519 M25.461 Prior mildly inflammato ry effusion. Requesting re-injecti on today. However, last time ozzie got about 2 weeks relief and I am not sure this would be useful. Long-term drug therapy [id number] Z79.899 Pt on predatory animal exterminator MTX. Reviewed recent labs. No signs or symptoms of toxicity. Tolerating well. Continue monitor labs. Continue folate/mercedes covorin supplement [id number] Nba Morrison MD Rheumatol [facility] [place], [address] [place] [address] 04/04/2016 08:05:44 04/04/2016 08:44:48 Inflammatory polyarthropathy [id number] M06.4 This patient has a symmetrica l, inflammato ry polyarthri tis. Onset was about 9 months ago. There was a weakly positive rheumatoid factor, but neg on repeat and neg CCP. He has a strong family history of rheumatoid arthritis. I am reasonably sure that the diagnosis here is indeed rheumatoid arthritis. There has been considerab le improvemen t on low-dose prednisone plus the methotrexa te. There is, however, definite residual synovitis. I have instructed him to continue methotrexa te to 20 mg weekly (changed to liquid to save money), continue the prednisone at 5 mg daily, continue folic acid. I still think we need to be thinking about additional DMARD medication , specifical ly discussed LEF. Cost might be an issue. He wanted to wait. Updated hand x rays last visit showed no progressio n of arthritis over one year, no erosive disease. Ankle pain [id number] M25 .572 Ankle pain, RA. Try L ankle injection today. Long-term drug therapy [id number] Z79.899 Pt on predatory animal exterminator MTX. Reviewed recent labs. No signs or symptoms of toxicity. Tolerating well. Continue monitor labs. Continue folate/mercedes covorin supplement [id number] Nba Morrison MD Rheumatol [place], [address] [place] [address] 07/11/2016 08:08:36 07/11/2016 08:43:43 Inflammatory polyarthropathy [id number] M06.4 This patient has a symmetrica l, inflammato ry polyarthri tis. Onset was mid 2014. There was a weakly positive rheumatoid factor, but neg on repeat and neg CCP. He has a strong family history of rheumatoid arthritis. I am reasonably sure that the diagnosis here is indeed rheumatoid arthritis. There has been considerab le improvemen t on low-dose prednisone plus the methotrexa te. There is, however, definite residual synovitis. I have instructed him to continue methotrexa te to 20 mg weekly (changed to liquid to save money), continue the prednisone at 5 mg daily, continue folic acid. Most symptomati c joint is L sub-talar ankle joint and this will be injected todAY. I still think we need to be thinking about additional DMARD medication , specifical ly discussed LEF. Cost might be an issue. He wanted to wait. Updated hand x rays Dec 2015 showed no progressio n of arthritis over one year, no erosive disease. Ankle pain 544934507 M25 .572 Ankle pain, RA. Try L ankle (sub-talar ) injection today. Long-term drug therapy [id number] Z79.899 Pt on predatory animal exterminator MTX. Reviewed recent labs. No signs or symptoms of toxicity. Tolerating well. Continue monitor labs. Continue folate/mercedes covorin supplement [id number] Nba Morrison MD Rheumatol ogy, [facility] [address] [facility] [place] [address] 10/17/2016 08:26:23 10/18/2016 15:44:27 Inflammatory polyarthropathy [id number] M06.4 This patient has a symmetrica l, inflammato ry polyarthri tis. Onset was mid 2014. There was a weakly positive rheumatoid factor, but neg on repeat and neg CCP. He has a strong family history of rheumatoid arthritis. I am reasonably sure that the diagnosis here is sero-negat mena rheumatoid arthritis. There has been considerab le improvemen t on low-dose prednisone plus the methotrexa te 20 mg weekly (changed to liquid to save money), and prednisone at 5 mg daily.Upda caren hand x rays Dec 2015 showed no progressio n of arthritis over one year, no erosive disease. Today has mostly back, R hip and r knee sxs. Back pain is chronic. R hip has been replaced. Pain localizes today over the R gr trochanter .R knee has effusion. Fluid sl hazy, at most minimally inflammato ry. I think synovitis is reasonably well controlled today and do not see the need for additonal DMARD treatment at present. R knee to be treated with local injection. He could return for trial of R trochanter ic injection. Otherwise, f/u 3 mo. Knee joint effusion 2022 04409 M25.461 Prior mildly inflammato ry effusion. Requesting re-injecti on today. Long-term drug therapy [id number] Z79.899 Pt on mcfp MTX. Reviewed recent labs. No signs or symptoms of toxicity. Tolerating well. Continue monitor labs. Continue folate/mercedes covorin supplement Osteoarthr itis of knee [id number] M17.11 Known DJD knee. Some buckling sxs.Knee injected previously .Re-inject today/ Hip pain 79347184 M25.55 1 s/p R THR. Having lateral pain, some tenderness .Probably a component of trochanter ic bursitis. Could try local injection if he wants.He wants to wait. [id number] Nba Morrison MD Rheumatol y, [facility] [address] [place] [address] 01/16/2017 08:07:23 01/18/2017 07:42:52 Inflammatory polyarthropathy 064367699 M06.4 This patient has a symmetrica l, inflammato ry polyarthri tis. Onset was mid 2014. There was a weakly positive rheumatoid factor, but neg on repeat and neg CCP. He has a strong family history of rheumatoid arthritis. I am reasonably sure that the diagnosis here is rheumatoid arthritis. There has been marked improvemen t on methotrexa te 20 mg weekly (changed to liquid to save money), and prednisone at 5 mg daily.Upda caren hand x rays Dec 2015 showed no progressio n of arthritis over one year, no erosive disease. I think synovitis is reasonably well controlled today and do not see the need for additonal DMARD treatment at present. Current sxs relate to chronic R trochanter ic bursitis (s/p R THR), and degenerati ve arthritis at R knee. Suspect leg length difference contribute s to bursitis. Should discuss with Dr Carter. Long-term drug therapy [id number] Z79.899 Pt on predatory animal exterminator MTX. Reviewed recent labs. No signs or symptoms of toxicity. Tolerating well. Continue monitor labs. Continue folate/mercedes covorin supplement Osteoarthr itis of knee 837249497 M17.11 Known DJD knee. Some buckling sxs.Knee injected previously .Hold off inj for now. Return if incr sxs. Greater tr ochanteric pain syndrome 0922126 M70.61 hronic R trochanter ic bursitis (s/p R THR). Has seen Dr Carter about this. We could consider local injection. [id number] Nba Morrison MD Rheumatol y, [facility] [address] [place] [address] 04/17/2017 08:01:56 04/17/2017 08:47:28 Inflammatory polyarthropathy [id number] M06.4 This patient has a symmetrica l, inflammato ry polyarthri tis. Onset was mid 2014. There was a weakly positive rheumatoid factor, but neg on repeat and neg CCP. He has a strong family history of rheumatoid arthritis. I am reasonably sure that the diagnosis here is rheumatoid arthritis. There has been marked improvemen t on methotrexa te 20 mg weekly (changed to liquid to save money), and prednisone now at 3 mg daily.Upda caren hand x rays Dec 2015 showed no progressio n of arthritis over one year, no erosive disease. I think synovitis is reasonably well controlled today and do not see the need for additonal DMARD treatment at present. 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 Previously this responded well to local injection. Re-inject today. Long-term drug therapy [id number] Z79.899 Pt on predatory animal exterminator MTX. Reviewed recent labs. No signs or symptoms of toxicity. Tolerating well. Continue monitor labs. Continue folate/mercedes covorin supplement Ankle joint effusion 202 015306 M25.472 L subtalar ankle joint arthritis/ effusion.H e had injection several mo ago with sustained benefit. Sxs have recurred.L ocal inj today. Degenerati ve joint disease of hand 28794195 M19.041 Probably a mixed picture of significan t degenerati ve arthritis at the base of the right thumb along with an inflammato ry component. This was injected previously with fairly good response. [id number] Nba Morrison MD Rheumatol [address] [address] 07/24/2017 08:05:57 07/24/2017 08:41:28 Inflammatory polyarthropathy [id number] M06.4 This patient has a symmetrica l, inflammato ry polyarthri tis. Onset was mid 2014. There was a weakly positive rheumatoid factor, but neg on repeat and neg CCP. He has a strong family history of rheumatoid arthritis. I am reasonably sure that the diagnosis here is rheumatoid arthritis. There has been marked improvemen t on methotrexa te 20 mg weekly (changed to liquid to save money), and prednisone now at 3 mg daily.Upda caren hand x rays Dec 2015 showed no progressio n of arthritis over one year, no erosive disease. I think synovitis is reasonably well controlled today and do not see the need for additonal DMARD treatment at present. 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 Previously this responded well to local injection. Re-inject today. Ankle pain 559085520 M25 .572 Ankle pain, RA and probably componendt of DJD. L ankle (sub-talar ) injection today. Long-term drug therapy 030678472 Z79.899 Pt on mcfp MTX. Reviewed recent labs. No signs or symptoms of toxicity. Tolerating well. Continue monitor labs. Continue folate/mercedes covorin supplement [id number] Nba Morrison MD Rheumatol [address] [address] 10/16/2017 08:21:43 10/16/2017 08:54:24 Inflammatory polyarthropathy 635739916 M06.4 This patient has a symmetrica l, inflammato ry polyarthri tis. Onset was mid 2014. There was a weakly positive rheumatoid factor, but neg on repeat and neg CCP. He has a strong family history of rheumatoid arthritis. I am reasonably sure that the diagnosis here is rheumatoid arthritis. There has been marked improvemen t on methotrexa te 20 mg weekly (changed to liquid to save money), and prednisone now at 3 mg daily.Upda caren hand x rays Dec 2015 showed no progressio n of arthritis over one year, no erosive disease. I think synovitis is reasonably well controlled today and do not see the need for additonal DMARD treatment at present. 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 Previously this responded well to local injection. He has ongoing sxs, however, using cane. I have advised further evaluation (x ray) and podiatry referral. I wonder if a brace would help. Declines referral at this time. Despite discomfort , walking well over an hour per day. Ankle pain 281500426 M25 .572 Ankle pain, RA and probably componendt of DJD. I have advised further evaluation (x ray) and podiatry referral. I wonder if a brace would help. Declines referral at this time. Despite discomfort , walking well over an hour per day. Long-term drug therapy [id number] Z79.899 Pt on predatory animal exterminator MTX. Reviewed recent labs. No signs or symptoms of toxicity. Tolerating well. Continue monitor labs. Continue folate/mercedes covorin supplement [id number] Nba Morrison MD Rheumatol [facility] [place], [facility] [address] [place] [address] 01/17/2018 08:25:39 01/17/2018 08:57:11 Inflammatory polyarthropathy 479261566 M06.4 This patient has a symmetrica l, inflammato ry polyarthri tis. Onset was mid 2014. There was a weakly positive rheumatoid factor, but neg on repeat and neg CCP. He has a strong family history of rheumatoid arthritis. I am reasonably sure that the diagnosis here is rheumatoid arthritis. There has been marked improvemen t on methotrexa te 20 mg weekly (changed to liquid to save money), and prednisone now at 3 mg daily.Upda caren hand x rays Dec 2015 showed no progressio n of arthritis over one year, no erosive disease. I think synovitis is reasonably well controlled today and do not see the need for additonal DMARD treatment at present. L subtalar joint arthritis has been active in past, but currently mostly asymptomat ic. Previously this responded well to local injection. He has been using cane. Long-term drug therapy [id number] Z79.899 Pt on mcfp MTX. Reviewed recent labs. No signs or symptoms of toxicity. Tolerating well. Continue monitor labs. Continue folate/mercedes covorin supplement Ankle pain 823265673 M25 .572 Ankle pain, RA and probably component of DJD.Finds some relief with more supportive footwear.I have advised further evaluation (x ray) and podiatry referral. I wonder if a brace would help. Declines referral at this time. Despite discomfort , walking well over an hour per day. [id number] Nba Morrison MD Rheumatol [place], [address] [place] [address] 04/18/2018 08:24:06 04/18/2018 08:47:47 Inflammatory polyarthropathy 617457024 M06.4 This patient has a symmetrica l, inflammato ry polyarthri tis. Onset was mid 2014. There was a weakly positive rheumatoid factor, but neg on repeat and neg CCP. He has a strong family history of rheumatoid arthritis. I am reasonably sure that the diagnosis here is rheumatoid arthritis. There has been marked improvemen t on methotrexa te 20 mg weekly (changed to liquid to save money), and prednisone at 3 mg daily. Hand x rays Dec 2015 showed no progressio n of arthritis over one year, no erosive disease.Wi ll order updated films today. I think synovitis is reasonably well controlled today and do not see the need for additonal DMARD treatment at present unless x rays show significan t progressio n.Continue very low dose prednisone for comfort. . L subtalar joint arthritis has been active in past, but currently mostly asymptomat ic. Previously this responded well to local injection. He has been using cane. Long-term drug therapy [id number] Z79.899 Pt on predatory animal exterminator MTX. Reviewed recent labs. No signs or symptoms of toxicity. Tolerating well. Continue monitor labs. Continue folate/mercedes covorin supplement Degenerati ve joint disease of hand 39659241 M19.041 He has significan t degenerati ve arthritis at the base of the thumbs. 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 Low back pain 389180821 M54.5 Lumbar pain with mechanica l characteri stics . Worst when he tries vacuuming. Does not limit his walking. Offered PT but declines. [id number] Nba Morrison MD Rheumatol [place], [address] [place] [address] 07/25/2018 08:18:25 07/25/2018 09:06:14 Inflammatory polyarthropathy [id number] M06.4 This patient has a symmetrica l, inflammato ry polyarthri tis. Onset was mid 2014. There was a weakly positive rheumatoid factor, but neg on repeat and neg CCP. He has a strong family history of rheumatoid arthritis. I am reasonably sure that the diagnosis here is rheumatoid arthritis. There has been marked improvemen t on methotrexa te 20 mg weekly (changed to liquid to save money), and prednisone at 3 mg daily. Hand x rays March 2018 showed no significan t progressio n of arthritis over 2 years. no erosive disease. I think synovitis is reasonably well controlled today and do not see the need for additonal DMARD treatment at present. Continue MTX and very low dose prednisone for comfort. . L subtalar joint arthritis has been active in past, but currently mostly asymptomat ic. Previously this responded well to local injection. Long-term drug therapy 164043531 Z79.899 Pt on mcfp MTX. Reviewed recent labs. No signs or symptoms of toxicity. Tolerating well. Continue monitor labs. Continue folate/mercedes covorin supplement Osteoarthr itis of knee 303937156 M17.11 Known DJD R knee.Knee injected previously .Hold off inj for now. Return if incr sxs.Not ready for TKR on right. Prior L TKR: did well. [id number] Nba Morrison MD Rheumatol [facility], [facility] [address] [facility] [place] [address] 10/24/2018 08:21:01 10/24/2018 09:38:02 Long-term drug therapy 490206685 Z79.899 Pt on predatory animal exterminator MTX. Reviewed recent labs. No signs or symptoms of toxicity. Tolerating well. Continue monitor labs. Continue folate/mercedes covorin supplement Degenerati ve joint disease of hand 70069070 M19.041 He has significan t degenerati ve arthritis at the base of the thumbs. 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 Inflammato ry polyarthropathy 603949888 M06.4 This patient has a symmetrica l, inflammato ry polyarthri tis. Onset was mid 2014. There was a weakly positive rheumatoid factor, but neg on repeat and neg CCP. He has a strong family history of rheumatoid arthritis. I am reasonably sure that the diagnosis here is rheumatoid arthritis. There has been marked improvemen t on methotrexa te 20 mg weekly (changed to liquid to save money), and prednisone at 3 mg daily. Hand x rays March 2018 showed no significan t progressio n of arthritis over 2 years. no erosive disease. I think synovitis is reasonably well controlled today and do not see the need for additonal DMARD treatment at present. Continue MTX and very low dose prednisone for comfort. . L subtalar joint arthritis has been active in past, but currently mostly asymptomat ic. Previously this responded well to local injection. Foot pain 56009879 M79.6 73 Two separate problems:R hammertoe, perhaps needs surgical attention. L ? plantar's wart with neuritic pain first toe. Refer to Podiatry.C heck x rays. Offered cautious trial of hs gabapentin at low dose (sxs worse at night). He is not sure he is going to take it. [id number] Dorinda Lindsey, [facility], [facility] [address] [facility] [place] [address] 11/22/2018 09:52:57 11/25/2018 08:01:27 Inflammatory polyarthropathy 877362710 M06.4 Foot callus 196046209 L8 4 Hammer toe 561369611 M20 .41 Acquired h allux valgus 58745103 M20.11 Foot pain 95708723 M79.6 71 M79.672 left foot pain appears to be related to sun outgrowth seen at hallux ipj on left foot. This bone growth is on the plantar aspect and has a conical shape. Reviewed these findings with patient including surgical tx for this. Pt opting out when reviewed need to not place weight on his foot for 3-4 weeks. Stating he enjoys his walks and is unable to consider such even in setting of his pain. Pt also with rigid hammer toe and bunion on right foot. Reviewed the etiology of those with patient and he will obtain a bunion splint to try and get his toe in alignment. Pt stating that when he tapes down his toe he does not experience pain. Encourage use of orthotics. Opt for conservati ve care. RTC prn. [id number] Nba Morrison MD Rheumatol [address] [place] [address] 02/20/2019 10:17:02 02/20/2019 10:55:55 Inflammatory polyarthropathy 209719107 M06.4 This patient has a symmetrica l, inflammato ry polyarthri tis. Onset was mid 2014. There was a weakly positive rheumatoid factor, but neg on repeat and neg CCP. He has a strong family history of rheumatoid arthritis. I am reasonably sure that the diagnosis here is rheumatoid arthritis. There has been marked improvemen t on methotrexa te 20 mg weekly (changed to liquid to save money), and prednisone at 3 mg daily. Hand x rays March 2018 showed no significan t progressio n of arthritis over 2 years. no erosive disease. I think synovitis is reasonably well controlled today and do not see the need for additonal DMARD treatment at present. Continue MTX and very low dose prednisone for comfort. . L subtalar joint arthritis has been active in past, but currently mostly asymptomat ic. Previously this responded well to local injection. Neuralgia 34346521 M79.2 Improved with gabapentin . May remain on low dose gabapepnti n as this has proved quite helpful with sleep. Pain in right knee 68060 84239 37313 M25.561 Pain and sl warmth, effusion.O ffered local injection, but generally this only helps transientl y.Will call back if he wants injection. Retinal detachment 14270 000 H35.70 Long-term drug therapy 355503322 Z79.899 Pt on mcfp MTX. Reviewed recent labs. No signs or symptoms of toxicity. Tolerating well. Continue monitor labs. Continue folate/mercedes covorin supplement [id number] Nba Morrison MD Rheumatol michael, [facility] [address] [place] [address] 05/13/2019 08:31:44 05/13/2019 09:01:03 Inflammatory polyarthropathy 625821119 M06.4 This patient has a symmetrica l, inflammato ry polyarthri tis. Onset was mid 2014. There was a weakly positive rheumatoid factor, but neg on repeat and neg CCP. He has a strong family history of rheumatoid arthritis. I am reasonably sure that the diagnosis here is rheumatoid arthritis. There has been marked improvemen t on methotrexa te 20 mg weekly (changed to liquid to save money), and prednisone at 3 mg daily. Hand x rays March 2018 showed no significan t progressio n of arthritis over 2 years. no erosive disease. I think synovitis is reasonably well controlled today and do not see the need for additonal DMARD treatment at present. L subtalar joint arthritis has been active in past, but currently mostly asymptomat ic. Previously this responded well to local injection. Osteoarthr itis of knee 675132014 M17.11 Known DJD R knee.Knee injected previously .Hold off inj for now. Return if incr sxs.Discus sed gel series. His brother had this and did well, but patient does not want at present.No t ready for TKR on right. Prior L TKR: did well. Neuralgia 99980699 M79.2 Improved with gabapentin . May remain on low dose gabapepnti n as this has proved quite helpful with sleep. [id number] Nba Morrison MD Rheumatol [facility] [place], [facility] [address] [facility] [place] [address] 08/15/2019 08:25:00 08/15/2019 14:35:38 Inflammatory polyarthropathy 187261949 M06.4 This patient has a symmetrica l, inflammato ry polyarthri tis. Onset was mid 2014. There was a weakly positive rheumatoid factor, but neg on repeat and neg CCP. He has a strong family history of rheumatoid arthritis. I am reasonably sure that the diagnosis here is rheumatoid arthritis. There has been marked improvemen t on methotrexa te 20 mg weekly (changed to liquid to save money), and prednisone at 3 mg daily. Hand x rays March 2018 showed no significan t progressio n of arthritis over 2 years. no erosive disease. I think synovitis is reasonably well controlled today and do not see the need for additonal DMARD treatment at present. L subtalar joint arthritis has been active in past, but currently mostly asymptomat ic. Previously this responded well to local injection. Pain in ri [facility] hip joint [id number] 03592 M25.551 ~10 yrs post R THR. Pain felt generally trochanter ic region with prolonged standing. Will check x ray. bony prominence R trochanter ic region looks to be related to soft tissue loss adjacent to surgical scar. 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 This has probably been present since his surgery. Suggested L shoe insert to replace perhaps 3/8 inch of difference Long-term drug therapy 040098620 Z79.899 Pt on predatory animal exterminator MTX. Reviewed recent labs. No signs or symptoms of toxicity. Tolerating well. Continue monitor labs. Continue folate/mercedes covorin supplement [id number] Nba Morrison MD Rheumatol [address] [place] [address] 11/14/2019 08:12:00 11/14/2019 09:23:21 Inflammatory polyarthropathy 102637930 M06.4 This patient has a symmetrica l, inflammato ry polyarthri tis. Onset was mid 2014. There was a weakly positive rheumatoid factor, but neg on repeat and neg CCP. He has a strong family history of rheumatoid arthritis. I am reasonably sure that the diagnosis here is rheumatoid arthritis. There has been marked improvemen t on methotrexa te 20 mg weekly (changed to liquid to save money), and prednisone at 3 mg daily. Hand x rays March 2018 showed no significan t progressio n of arthritis over 2 years. no erosive disease. I think synovitis is reasonably well controlled today and do not see the need for additonal DMARD treatment at present. L subtalar joint arthritis has been active in past, but currently mostly asymptomat ic. Previously this responded well to local injection. Pain of [facility] shoulder joint [id number] M25.511 Pain after recent snow shovelling . Better today.Burs itis/RC tendinitis .Offered local injection. Declined for now, but will let me know if he changes his mind.About to leave to visit daughter in [place]. [id number] Nba Morrison MD Rheumatol [facility] [place], [address] [place] [address] 02/13/2020 08:04:45 02/13/2020 12:12:07 Inflammatory polyarthropathy [id number] M06.4 This patient has a symmetrica l, inflammato ry polyarthri tis. Onset was mid 2014. There was a weakly positive rheumatoid factor, but neg on repeat and neg CCP. He has a strong family history of rheumatoid arthritis. I am reasonably sure that the diagnosis here is rheumatoid arthritis. There has been marked improvemen t on methotrexa te 20 mg weekly (changed to liquid to save money), and prednisone at 3 mg daily. Hand x rays March 2018 showed no significan t progressio n of arthritis over 2 years. no erosive disease. I think synovitis is reasonably well controlled and do not see the need for additonal DMARD treatment at present. 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 Previously this responded well to local injection. [id number] Nba Morrison MD Rheumatol [place], [address] [address] 05/14/2020 08:45:44 05/17/2020 07:36:44 Inflammatory polyarthropathy [id number] M06.4 This patient has a symmetrica l, inflammato ry polyarthri tis. Onset was mid 2014. There was a weakly positive rheumatoid factor, but neg on repeat and neg CCP. He has a strong family history of rheumatoid arthritis. I am reasonably sure that the diagnosis here is rheumatoid arthritis. There has been marked improvemen t on methotrexa te 20 mg weekly (changed to liquid to save money), and prednisone at 3 mg daily. Hand x rays March 2018 showed no significan t progressio n of arthritis over 2 years. no erosive disease. I think synovitis is reasonably well controlled and do not see the need for additonal DMARD treatment at present. Consider repeat hand films at next visit. 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 Previously this responded well to local injection. Says not bothersome at present. Long-term drug therapy [id number] Z79.899 Pt on predatory animal exterminator MTX. Reviewed recent labs. No signs or symptoms of toxicity. Tolerating well. Continue monitor labs. Has appointmen t. Continue folate/mercedes covorin supplement Request lipids etc at next lab: will forward to Primary Care. Neuralgia [id number] M79.2 Pain in both feet. Improved with gabapentin . May remain on low dose gabapepnti n as this has proved quite helpful with sleep. [id number] Nba Morrison MD Rheumatol [place], [address] [address] 09/03/2020 08:27:47 09/07/2020 07:18:33 Inflammatory polyarthropathy [id number] M06.4 This patient has a symmetrica l, inflammato ry polyarthri tis. Onset was mid 2014. There was a weakly positive rheumatoid factor, but neg on repeat and neg CCP. He has a strong family history of rheumatoid arthritis. I am reasonably sure that the diagnosis here is rheumatoid arthritis. There has been marked improvemen t on methotrexa te 20 mg weekly (changed to liquid to save money), and prednisone at 3 mg daily. 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 no erosive disease. I think synovitis is reasonably well controlled and do not see the need for additonal DMARD treatment at present. 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 Previously this responded well to local injection. Says not bothersome at present. Continue current treatment: MTX 20/wk, prednisone 3/d. Neuralgia [id number] M79.2 Pain in both feet. Improved with gabapentin . May remain on low dose gabapepnti n as this has proved quite helpful with sleep. 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 Reviewed recent labs. No signs or symptoms of toxicity. Tolerating well. Continue monitor labs. Has appointmen t. Continue folate/mercedes covorin supplement Macrocytos is - no anemia [id number] D75.89 From MTX.Increa se folic acid to 2 mg/d. [id number] Nba Morrison MD Rheumatol [facility] [place], [facility] [address] [place] [address] 12/31/2020 09:03:02 01/03/2021 06:53:28 Inflammatory polyarthropathy [id number] M06.4 This patient has a symmetrica l, inflammato ry polyarthri tis. Onset was mid 2014. There was a weakly positive rheumatoid factor, but neg on repeat and neg CCP. He has a strong family history of rheumatoid arthritis. I am reasonably sure that the diagnosis here is rheumatoid arthritis superimpos ed on a significan t degree of DJD at wrists.. There has been marked improvemen t on methotrexa te 20 mg weekly (changed to liquid to save money), and prednisone at 3 mg daily. 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 no erosive disease. I think synovitis is reasonably well controlled and do not see the need for additonal DMARD treatment at present. 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 Previously this responded well to local injection. Says not bothersome at present. Continue current treatment: MTX 20/wk, prednisone 3/d. 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 Reviewed recent labs. No signs or symptoms of toxicity. Tolerating well. Continue monitor labs. Continue folate/mercedes covorin supplement [id number] Nba Morrison MD Rheumatol [facility] [place], [facility] [address] [place] [address] 04/12/2021 09:07:16 04/13/2021 19:29:29 Inflammatory polyarthropathy [id number] M06.4 This patient has a symmetrica l, inflammato ry polyarthri tis. Onset was mid 2014. There was a weakly positive rheumatoid factor, but neg on repeat and neg CCP. He has a strong family history of rheumatoid arthritis. I am reasonably sure that the diagnosis here is rheumatoid arthritis superimpos ed on a significan t degree of DJD at wrists.. There has been marked improvemen t on methotrexa te 20 mg weekly (changed to liquid to save money), and prednisone at 3 mg daily. 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 no erosive disease. I think synovitis is reasonably well controlled and do not see the need for additonal DMARD treatment at present. 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 Previously this responded well to local injection. Says not bothersome at present. Continue current treatment: MTX 20/wk, prednisone 3/d. Long-term drug therapy [id number] Z79.899 Pt on mcfp MTX. Reviewed recent labs. No signs or symptoms of toxicity. Tolerating well. Mild macrocytos is; on folate 2 mg/d. Continue monitor labs. Continue folate supplement [id number] Zhao Truong MD Rheumatol [facility] [place], [facility] [address] [place] [address] 08/15/2021 11:48:32 08/15/2021 13:57:19 Inflammatory polyarthropathy [id number] M06.4 Doing well on current treatment. Continue methotrexa te and folic acid and prednisone 3 [facility] daily[facility] for disease activity and medication toxicity (standing orders).CO VID booster discussed. Patient to hold methotrexa te one week after the booster.Chau nicole to get the flu shot. 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 [id number] Zhao Truong MD Rheumatol [facility], [address] [place] [address] 12/06/2021 09:40:53 12/06/2021 15:58:30 Inflammatory polyarthropathy [id number] M06.4 Doing well on current treatment. Continue methotrexa te and folic acid and prednisone 3 mg daily.Add leucovorin 10 mg once weekly as patient has macrocytos is.Check labs for disease activity and medication toxicity (standing orders).Chau nicole got the COVID booster and the flu shot. RTC in 4 months or sooner if needed. Long-term drug therapy [id number] Z79.899 Pt on mcfp MTX.Contin ue folic acid. Add leucovorin because of macrocytos is.Monitor labs.Patie nt to hold mtx if fever or any signs of infection. 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 [id number] Zhao Truong MD Rheumatol [place], [address] [address] 08/09/2022 09:47:49 08/25/2022 10:25:45 Inflammatory polyarthropathy [id number] M06.4 Doing well on current treatment. Continue methotrexa te and folic acid and prednisone 3 mg daily.Cont inue leucovorin 10 mg once weekly as patient has macrocytos is. COVID booster discussed. Patient to hold methotrexa te one week after the booster.Chau nicole to get flu shot. Check labs for disease activity and medication toxicity (now and in 3 months). RTC in 4 months or sooner if needed. Long-term drug therapy [id number] Z79.899 Pt on mcfp MTX.Contin ue folic acid and leucovorin because of macrocytos is.Monitor labs.Patie nt to hold mtx if fever or any signs of infection. Macrocytic anemia 190224 05 D53.9 Chronic, stable.B12 and folic acid normal.To follow with PCP. Neck pain [id number] M54.2 Patient did not want to try therapy now.He will call office if he agrees to see PSS. Health Concerns Section Related Observation LastModified by Organization Detai ls LastModified Time None Recorded Concern Status LastModified by Organization Details LastModified Time None Recorded Advance Directives Directive None Recorded Payers Encounter Date Sequence Insurance Name Policy Number Policy Mckenna Covered Member ID Mckenna Member ID Guarantor Name 12/31/2020 1 [place] [employer] Edward P Mikalunas [id number] Edward Mikalunas 12/31/2020 2 [place] [id number] Edward P Mikalunas [id number] Edward Mikalunas 04/12/2021 1 [place] Edward P Mikalunas [id number] Edward Mikalunas 04/12/2021 2 [place] [id number] Edward P Mikalunas [id number] Edward Mikalunas 08/15/2021 1 [place] [employer] Edward P Mikalunas [id number] Edward Mikalunas 08/15/2021 2 [place] [id number] Edward P Mikalunas [id number] Edward Mikalunas 12/06/2021 1 [place] [employer] Edward P Mikalunas [id number] Edward Mikalunas 12/06/2021 2 [place] [id number] Edward P Mikalunas [id number] Edward Mikalunas 08/09/2022 1 [place] [facility] Tino Culp [id number] Tino Culp 08/09/2022 2 [place] CAREY HERNANDEZ (MEDIC[place] SUPPLEMENT) [id number] Tino Culp [id number] Tino Culp Notes Date Note Type Note Provider Name and Address Organization Details Recorded Time 1 text/html Patient agreed to this visit via non-secure telehealth platform due to the COVID -19 pandemic. The nature of the non-secure technology was discussed and the patient agreed to proceed. Patient understands this is a scheduled visit and the usual procedures with regard to billing and confidentiality apply. Patient was notified that the provider location is home Patient location: home During the visit the patient? s medical history and medical record were reviewed. 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 Has been on MTX since Jun, 2015. Current dose 20mg/wk (takes liquid form orally). Still on prednisone 3 mg/d. Takes very rare dose tramadol. There is some minimal persisting sxs of the hands and wrists.No significant degree of AM stiffness.X rays were updated about 2 years ago. 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 No progressive erosive disease. There has been foot pain: Burning neuritic pain including nocturnal pain. Gabapentin seemed quite helpful, still taking 300 mg/night. Helps with sleep Up to date on labs. Reviewed. Scheduled for colonoscopy (hene+ stool). Nba Morrison MD [address] [place] [address], [phone], [facility] 01/01/2021 10:26:01 1 text/html Patient agreed to this visit via non-secure telehealth platform due to the COVID -19 pandemic. The nature of the non-secure technology was discussed and the patient agreed to proceed. Patient understands this is a scheduled visit and the usual procedures with regard to billing and confidentiality apply. Patient was notified that the provider location is home Patient location: home During the visit the patient? s medical history and medical record were reviewed. Follow up for 75 y/o with sero negative RA, diagnosis mid 2014. Has been on MTX since Jun, 2015. Current dose 20mg/wk (takes liquid form orally). Still on prednisone 3 mg/d. Takes very rare dose tramadol or Percocet (provided by Primary Care). There is some minimal persisting sxs of the hands and wrists.No significant degree of AM stiffness.X rays were updated about 2 years ago. 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 No progressive erosive disease. There has been foot pain. More than one type pain. Pain worse with prolonged activity, but is able to spend upto 2 hrs mowing lawn etc. Prior L ankle injection was helpful at the time.Also, he has burning neuritic pain including nocturnal pain. Gabapentin seemed quite helpful, still taking 300 mg/night. Helps with sleep Up to date on labs. Reviewed. Has had Covid vaccine. Nba Morrison MD [address] [place] [address], [phone], [facility] 04/13/2021 08:04:48 1 text/html This is a virtual phone visit. Patient is 76 y old male following-up on inflammatory polyarthropathy.Patient used to see Dr. Morrison. Patient states that he is doing OK. Occasional aching in shoulders and knees. No swelling. No morning stiffness. Patient is on methotrexate 0.8 ml oral weekly , folic acid 2 mg daily, and predniosne 3 mg daily.Patient is tolerating the medications, no side effects reported. No recent labs. As per previous visit with Dr. 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 Has been on MTX since Jun, 2015. Current dose 20mg/wk (takes liquid form orally). Still on prednisone 3 mg/d. Takes very rare dose tramadol or Percocet (provided by Primary Care). There is some minimal persisting sxs of the hands and wrists.No significant degree of AM stiffness.X rays were updated about 2 years ago. 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 No progressive erosive disease. There has been foot pain. More than one type pain. Pain worse with prolonged activity, but is able to spend upto 2 hrs mowing lawn etc. Prior L ankle injection was helpful at the time.Also, he has burning neuritic pain including nocturnal pain. Gabapentin seemed quite helpful, still taking 300 mg/night. Helps with sleep Up to date on labs. Reviewed. Has had Covid vaccine. Cary Truong MD [address] [place], [phone], [facility] 08/15/2021 12:28:59 2 text/html This is a virtual phone visit. Patient agreed to this visit via phone or secure telehealth platform due to the COVID -19 pandemic. Patient understands this is a scheduled visit and the usual procedures with regard to billing and confidentiality apply. Patient was notified that the provider location is home Patient location: home During the visit the patient? s medical history and medical record were reviewed. Patient is 76 y old male following-up on inflammatory polyarthropathy. Patient states that he is doing OK. He thinks he is stable. Occasional aching in shoulders and knees. No swelling. No morning stiffness. Patient is on methotrexate 0.8 ml oral weekly , folic acid 2 mg daily, and predniosne 3 mg daily.Patient is tolerating the medications, no side effects reported. Labs reviewed. As per previous visit with Dr. 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 Has been on MTX since Jun, 2015. Current dose 20mg/wk (takes liquid form orally). Still on prednisone 3 mg/d. Takes very rare dose tramadol or Percocet (provided by Primary Care). There is some minimal persisting sxs of the hands and wrists.No significant degree of AM stiffness.X rays were updated about 2 years ago. 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 No progressive erosive disease. There has been foot pain. More than one type pain. Pain worse with prolonged activity, but is able to spend upto 2 hrs mowing lawn etc. Prior L ankle injection was helpful at the time.Also, he has burning neuritic pain including nocturnal pain. Gabapentin seemed quite helpful, still taking 300 mg/night. Helps with sleep Up to date on labs. Reviewed. Has had Covid vaccine. Cary Truong MD [address] [place], [phone], [facility] 12/06/2021 10:02:40 2 text/html This is a virtual phone visit. Patient agreed to this visit via phone or secure telehealth platform due to the COVID -19 pandemic. Patient understands this is a scheduled visit and the usual procedures with regard to billing and confidentiality apply.Patient was notified that the provider location is homePatient location: homeDuring the visit the patient? s medical history and medical record were reviewed. Patient is 77 y old male following-up on inflammatory polyarthropathy.Patient states that he is doing OK. He thinks his arthritis stable.He is having neck pain. He had x-rays with his pcp.Occasional aching in shoulders and knees. No swelling. No morning stiffness. Patient is on methotrexate 0.8 ml oral weekly , folic acid 2 mg daily, and predniosne 3 mg daily.Patient is tolerating the medications, no side effects reported. Labs reviewed. Cervical radiographs:No cervical fracture or bone lesion. Severe degenerative spondylosis with bone on bone disc space narrowing at alllevels, reversal of lordosis and facet arthropathy contributing to fixedanterolisthesis at C2-3 and C7-T1. Fixed retrolisthesis at C5-6. No evidence forspinal instability on flexion and extension. Previous visit on 12/06/21:Patient is 76 y old male following-up on inflammatory polyarthropathy. Patient states that he is doing OK. He thinks he is stable. Occasional aching in shoulders and knees. No swelling. No morning stiffness. Patient is on methotrexate 0.8 ml oral weekly , folic acid 2 mg daily, and predniosne 3 mg daily.Patient is ting the medications, no side effects reported. Labs reviewed. As per previous visit with Dr. 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 Has been on MTX since Jun, 2015. Current dose 20mg/wk (takes liquid form orally). Still on prednisone 3 mg/d. Takes very rare dose tramadol or Percocet (provided by Primary Care). There is some minimal persisting sxs of the hands and wrists.No significant degree of AM stiffness.X rays were updated about 2 years ago. 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 No progressive erosive disease. There has been foot pain. More than one type pain. Pain worse with prolonged activity, but is able to spend upto 2 hrs mowing lawn etc. Prior L ankle injection was helpful at the time.Also, he has burning neuritic pain including nocturnal pain. Gabapentin seemed quite helpful, still taking 300 mg/night. Helps with sleep Up to date on labs. Reviewed. Has had Covid vaccine. Cary Truong MD [address] [place] [address], [phone], [facility] [place] 08/09/2022 10:17:41
--- OUTSIDE RECORDS SUMMARY | 2025-01-13 09:49 | XMS_ITS | Encounter Summary ---
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 Name Role Phone Rogerio Deng Primary Care Provider [phone] Wilbert Dickson MD Unavailable Gaurav Anderson Unavailable Costa Roberts Unavailable Encounter Details Date Type Department Care Team (Late st Contact Info) Description 11/15/[address] [phone] Maggie Balderas MD [address] [place] [address] Social History Tobacco Use Types Packs/Day Years Used Date Smoking Tobacco: Never Assessed Sex and Gender Information Value Date Recorded Sex Assigned at Male 12/09/2022 12:03 PM EST Legal Sex Male 6:23 PM EDT Gender Identity Male 09/22/2022 6:23 PM EDT Sexual Orientation Straight 09/22/2022 6: 23 PM EDT documented as of this encounter Plan of Treatment Upcoming Encounters Date Type Department Care Team (Late st Contact Info) Description 01/16/2025 9:00 AM EST Clinical Support [address] [phone] 02/19/2025 9:40 AM EDT Office Visit [address] [phone] Rogerio Deng PA [address] [place] [address] documented as of this encounter Visit Diagnoses Not on filedocumented in this encounter Care Teams Laborer [employer] Relationship Specialty Start Date End Date Rogerio Deng PA [address] [place] [address] PCP - General Family Medicine 11/24/22 Wilbert Dickson MD [address] [address] Ophthalmology 07/24/24 Gaurav Anderson [address] [place] [address] Cardiology 07/24/24 Costa Roberts [address] [place] [address] Optometry 07/24/24 Sergio Borden, DMD [address] [place] [address] Dentist 07/24/24 Josefa Chau MD [address] [place] [address], [address] [place] [address] Rheumatology 07/24/24 documented as of this encounter
--- OUTSIDE RECORDS SUMMARY | 2025-01-13 09:50 | XMS_ITS | Encounter Summary ---
Author Organization [employer] Address [address] [facility] [address]t [place] [address] Care Team Providers Care Chin Strap Cutter Name Role Phone Rogerio Deng Primary Care Provider [phone] Wilbert Dickson MD Unavailable Gaurav Anderson Unavailable Costa Roberts Unavailable Encounter Details Date Type Department Care Team (Late Contact Info) Description 12/06/[address] [facility] [address] [place] [address] Rogerio Deng PA [address] [place], [place] [phone] Social History Tobacco Use Types Packs/Day Years Used Date Smoking Tobacco: Former Cigarettes 1 40 1 966 - 2006 Passive Smoke Exposure: Never Smokeless Tobacco: Never Alcohol Use Standard Drinks/Week Comments Never 0 (1 standard drink = 0.6 oz pur e alcohol) Sex and Gender Information Value Date Recorded Sex Assigned at Male 12/09/2022 12:03 PM EST Legal Sex Male 6:23 PM EDT Gender Identity Male 09/22/2022 6:23 PM EDT Sexual Orientation Straight 09/22/2022 6: 23 PM EDT COVID-19 Exposure Response Date Recorded In the last 10 days, have yo u been in contact with someone who was confirmed or suspected to have Coronavirus/COVID-19? No / Unsure 11/24/2022 8:33 AM EST documented as of this encounter Plan of Treatment Upcoming Encounters Date Type Department Care Team (Late Contact Info) Description 01/16/2025 9:00 AM EST Clinical Support [address] [phone] 02/19/2025 9:40 AM EDT Office Visit [address] [phone] Rogerio Deng PA [address] [place] [address] documented as of this encounter Visit Diagnoses Not on filedocumented in this encounter Care Teams Chin Strap Cutter Relationship Specialty Start Date End Date Rogerio Deng PA [address] [place] [address] PCP - General Family Medicine 11/24/22 [place] [address] [place] [address] Ophthalmology 07/24/24 Gaurav Anderson [address] [place] [address] Cardiology 07/24/24 Costa Roberts [address] [place] [address] Optometry 07/24/24 Sergio Borden, DMD [address] [place] [address] Dentist 07/24/24 Josefa Chau MD [address] [place] [address], [address] [place] [address] Rheumatology 07/24/24 documented as of this encounter
--- OUTSIDE RECORDS SUMMARY | 2025-01-13 09:50 | XMS_ITS | Encounter Summary ---
Author Organization [employer] Address [address] [facility] 7t [place] [address] Care Team Providers Care Oxyacetylene Cutter Name Role Phone Rogerio Deng Primary Care Provider [phone] Wilbert Dickson MD Unavailable Gaurav Anderson Unavailable Costa Roberts Unavailable Encounter Details Date Type Department Care Team (Late st Contact Info) Description 08/28/[address] [phone] Rogerio Deng PA [address] [place], [place] [phone] Social History Tobacco Use Types Packs/Day Years Used Date Smoking Tobacco: Former Cigarettes 1 40 1 966 - 2006 Passive Smoke Exposure: Never Smokeless Tobacco: Never Alcohol Use Standard Drinks/Week Comments Never 0 (1 standard drink = 0.6 oz pur e alcohol) Alcohol Answer Date Recorded How often do you have a drink containing alcohol ? 0 03/13/2024 How many drinks containing a lcohol do you have on a typical day when you are drinking? 0 03/13/2024 How often do you have six or more drinks on one occasion? 0 03/13/2024 Depression Answer Date Recorded Patient Health Questionnaire-9 Score 1 03/13/2024 Patient Health Questionnaire-9 Score 1 03/13/2024 Last PHQ-9: Questionnaire Data Not on file 0 03/13/2024 Housing Stability Answer Date Recorded What is your housing situation today? I have alexandra fletcher 03/13/[address] you li ve. Do you have problems with any of the following? None of the above 03/13/2024 Food Insecurity Answer Date Recorded Within the past 12 months, y ou worried that your food would run out before you got money to buy more: Never True 03/13/2024 Within the past 12 months,th e food you bought just didn't last and you didn't have enough money to get more: Never True Transportation Answer Date Recorded In the past 12 months, has l ack of transportation kept you from medical appts, meetings, work or from getting things needed for daily living? No 03/13/2024 Intimate Partner Violence Answer Date R ecorded Within the last year, have y ou been afraid of your partner or ex-partner? 2 03/13/2024 Within the last year, have y ou been humiliated or emotionally abused in other ways by your partner or ex-partner? 2 Within the last year, have y ou been kicked, hit, slapped, or otherwise physically hurt by your partner or ex-partner? 2 03/13/2024 Within the last year, have y ou been raped or forced to have any kind of sexual activity by your partner or ex-partner? 2 03/13/2024 Utilities Answer Date Recorded In the past 12 months, has t he electric, gas, oil or water company threatened to shut off services in your home? No 03/13/2024 Depression Answer Date Recorded Patient Health Questionnaire-2 Score 2 07/24/2024 Internet Access Answer Date Recorded Internet Access Q1 No 07/25/2024 Internet Access Q2 I do not want or need it 06/28 Sex and Gender Information Value Date Recorded Sex Assigned at Male 12/09/2022 12:03 PM EST Legal Sex Male 6:23 PM EDT Gender Identity Male 09/22/2022 6:23 PM EDT Sexual Orientation Straight 09/22/2022 6: 23 PM EDT Occupation Industry Job Start Date Job End Date Retired Not on file Not on file Not on file documented as of this encounter Miscellaneous Notes * Telephone Encounter - Ana Candelario - 08/28/2024 5:33 PM EDT No call from medical * Telephone Encounter - Bibi Almanza - 08/28/2024 3:17 PM EDT Returning a missed call from nursing presumably for results. [phone] documented in this encounter Plan of Treatment Upcoming Encounters Date Type Department Care Team (Late st Contact Info) Description 01/16/2025 9:00 AM EST Clinical Support [address] [phone] 02/19/2025 9:40 AM EDT Office Visit [address] [phone] Rogerio Deng PA [address] [place] [phone] documented as of this encounter Visit Diagnoses Not on filedocumented in this encounter Additional Health Concerns Assessment Noted Time PHQ-9 Depression Total Score: 1 03/13/20 24 8:43 AM EDT A fall risk assessment has been complete d for the patient 07/24/2024 10:52 AM EDT documented as of this encounter Care Teams Oxyacetylene Cutter Relationship Specialty Start Date End Date Rogerio Deng PA [address] [place] [phone] PCP - General Family Medicine 11/24/22 Wilbert Dickson MD [address] [place] [address] Ophthalmology 07/24/24 Gaurav Anderson [address] [place] [address] Cardiology 07/24/24 Costa Roberts [address] [place] [address] Optometry 07/24/24 Sergio Borden, DMD [address] [place] [address] Dentist 07/24/24 Josefa Chau MD [address] [place] [address], [address] [place] [address] Rheumatology 07/24/24 documented as of this encounter
--- OUTSIDE RECORDS SUMMARY | 2025-01-13 09:50 | XMS_ITS | Encounter Summary ---
Author Organization [employer] Address [address] [facility] 7t [place] [address] Care Team Providers Care Packing Floor Worker Name Role Phone Rogerio Deng Primary Care Provider [phone] Wilbert Dickson MD Unavailable Gaurav Anderson Unavailable Costa Roberts Unavailable Reason for Visit * Reason Onset Date Comments Med Refill 09/04/2023 Pt is requesting refill of Gabapentin 100mg. Does appear the last fill date was 06/13. Pt states that they are almost out and there are no more refills remaining. I advised pt they may need to be seen prior to another rx being sent. Please call pt. [phone] Encounter Details Date Type Department Care Team ([facility] st Contact Info) Description 09/04/2023 Telephone [facility] [address] [place] [phone] Rogerio Deng PA [address] [place], [place] [phone] Med Refill (Pt is requesting refill of Gabapentin 100mg. Does appear the last fill date was 06/13. Pt states that they are almost out and there are no more refills remaining. I advised pt they may need to be seen prior to another rx being sent. Please call pt. [phone]) Social History Tobacco Use Types Packs/Day Years Used Date Smoking Tobacco: Former Cigarettes 1 40 1 966 - 2006 Passive Smoke Exposure: Never Smokeless Tobacco: Never Alcohol Use Standard Drinks/Week Comments Never 0 (1 standard drink = 0.6 oz pur e alcohol) Housing Stability Answer Date Recorded What is your housing situation today? I have alexandra fletcher 09/03/[address] you li ve. Do you have problems with any of the following? None of the above 09/03/2023 Food Insecurity Answer Date Recorded Within the past 12 months, y ou worried that your food would run out before you got money to buy more: Never True 09/03/2023 Within the past 12 months,th e food you bought just didn't last and you didn't have enough money to get more: Never True 07/2023 Transportation Answer Date Recorded In the past 12 months, has l ack of transportation kept you from medical appts, meetings, work or from getting things needed for daily living? No 09/03/2023 Utilities Answer Date Recorded In the past 12 months, has t he electric, gas, oil or water company threatened to shut off services in your home? No 09/03/2023 Depression Answer Date Recorded Patient Health Questionnaire-2 Score 0 03/09/2023 Sex and Gender Information Value Date Recorded Sex Assigned at Male 12/09/2022 12:03 PM EST Legal Sex Male 6:23 PM EDT Gender Identity Male 09/22/2022 6:23 PM EDT Sexual Orientation Straight 09/22/2022 6: 23 PM EDT documented as of this encounter Miscellaneous Notes * Telephone Encounter - Dorian Catalan - 09/04/2023 9:21 AM EDT Pended. * Telephone Encounter - Yancy Pineda - 09/04/2023 8:32 AM EDT Pt is requesting refill of Gabapentin 100mg. Does appear the last fill date was 06/13. Pt states that they are almost out and there are no more refills remaining. I advised pt they may need to be seenprior to another rx being sent. Please call pt. [phone] documented in this encounter Plan of Treatment Upcoming Encounters Date Type Department Care Team (Late st Contact Info) Description 01/16/2025 9:00 AM EST Clinical Support [address] [phone] 02/19/2025 9:40 AM EDT Office Visit [address] [phone] Rogerio Deng PA [address] [place] [phone] documented as of this encounter Visit Diagnoses Not on filedocumented in this encounter Care Teams Packing Floor Worker Relationship Specialty Start Date End Date Rogerio Deng PA [address] [place] [address] PCP - General Family Medicine 11/24/22 Wilbert Dickson MD [address] [place] [address] Ophthalmology 07/24/24 Gaurav Anderson [address] [place] [phone] Cardiology 07/24/24 Costa Roberts [address] [place] [address] Optometry 07/24/24 Sergio Borden, DMD [address] [place] [address] Dentist 07/24/24 Josefa Chau MD [address] [place] [address], [address] [place] [address] Rheumatology 07/24/24 documented as of this encounter
--- OUTSIDE RECORDS SUMMARY | 2025-01-13 09:50 | XMS_ITS | Encounter Summary ---
Author Organization [employer] Address [address] [facility] 7t [place] [address] Care Team Providers Care Career Development Associate Name Role Phone Rogerio Deng Primary Care Provider [phone] Wilbert Dickson MD Unavailable Gaurav Anderson Unavailable Costa Roberts Unavailable Reason for Visit * Reason Onset Date Comments Med Refill 12/25/2024 Encounter Details Date Type Department Care Team (Late st Contact Info) Description 12/25/2024 Refill [facility] [address] [phone] Rogerio Deng PA [address] [place] [phone] Rheumatoid arthritis involving multiple sites with positive rheumatoid factor ([facility]/HCC) Social History Tobacco Use Types Packs/Day Years Used Date Smoking Tobacco: Former Cigarettes 1 40 1 966 - 2006 Passive Smoke Exposure: Never Smokeless Tobacco: Never Alcohol Use Standard Drinks/Week Comments Not Currently 0 (1 standard drink = 0.6 oz pur e alcohol) sober for many years Alcohol Answer Date Recorded How often do [...] encounter Miscellaneous Notes * Telephone Encounter - Rogers Gonzalez MA - 12/25/2024 2:56 PM EST PCP: LENO Galeano Last in-person office visit: Visit date not found Lab Results Component Value Date BUN 15 08/05/2024 CREATININE 0.74 08/05/2024 EGFRCREATINI 98 08/09/2023 HGBA1C 5.5 08/09/2023 K 4.8 08/05/2024 Assessment: [] Protocol passed [] Lab due [] Appointment due Plan: [] Please refill for 90 days [] Lab [] BMP [] TSH [] A1C [] Appointment due: Future Appointments Date Time Provider Department Center 01/16/2025 9:00 AM [facility] 02/19/2025 9:40 AM LENO Galeano [facility] Comments: documented in this encounter Plan of Treatment Upcoming Encounters Date Type Department Care Team (Late st Contact Info) Description 01/16/2025 9:00 AM EST Clinical Support [address] [phone] 02/19/2025 9:40 AM EDT Office Visit [address] [phone] Rogerio Deng PA [address] [place] [phone] documented as of this encounter Visit Diagnoses Diagnosis Rheumatoid arthritis involving multiple sites with positive rheumatoid factor ([facility]) documented in this encounter Additional Health Concerns Assessment Noted Time PHQ-9 Depression Total Score: 1 03/13/20 24 8:43 AM EDT A fall risk assessment has been complete d for the patient 07/24/2024 10:52 AM EDT documented as of this encounter Care Teams Career Development Associate Relationship Specialty Start Date End Date Rogerio Deng PA [address] [place] [address] PCP - General Family Medicine 11/24/22 Wilbert Dickson MD [address] [address] Ophthalmology 07/24/24 Gaurav Anderson [address] [place] [address] Cardiology 07/24/24 Costa Roberts [address] [place] [address] Optometry 07/24/24 Sergio Borden, DMD [address] [place] [address] Dentist 07/24/24 Josefa Chau MD [address] [place] [address], [address] [place], [place] [phone] Rheumatology 07/24/24 documented as of this encounter
--- OUTSIDE RECORDS SUMMARY | 2025-01-13 09:50 | XMS_ITS | Clinical Summary ---
Author Organization [employer] Address [address] [facility] [address] [place] [address] Care Team Providers Care Dietary Aid Name Role Phone Rogerio Deng Primary Care Provider [phone] Wilbert Dickson MD Unavailable Gaurav Anderson Unavailable Costa Roberts Unavailable Allergies No known active allergies Medications Methotrexate Sodium (methotrexate PF) 50 MG/2ML syringe INJECT 0.8 ML EVERY WEEK 2021 Active omega-3 (Fish Oil) 1200 MG capsule daily. 2014 Active Multiple Vitamins-Minerals (PreserVision AREDS) capsule Take 1 capsule by mouth in the morning and 1 capsule in the evening. Active leucovorin (Wellcovorin) 10 MG tabletIndications:Infl ammatory polyarthropathy (CMS/HCC) TAKE ONE TABLET THE DAY AFTER THE METHOTREXATE 5 tablet 2022 Active folic acid (Folvite) 1 MG tablet TAKE 2 TABLETS (2 MG) BY MOUTH IN THE MORNING. 180 tablet 3 2022 Active predniSONE (Deltasone) 2.5 MG tablet Take 2 mg by mouth in the morning. 2022 Active atorvastatin (Lipitor) 40 MG tabletIndications:Pure hypercholesterolemia Take 1 tablet (40 mg) by mouth in the morning. 90 tablet 3 08/15 Active traMADol (Ultram) 50 MG tabletIndications:Rheu matoid arthritis involving multiple sites with positive rheumatoid factor (CMS/HCC) Take 1 tablet (50 mg) by mouth Once daily as needed for severe pain. 30 tablet 2024 Active oxyCODONE-acetaminophe n (Percocet) 5-325 MG tabletIndications:Rheu matoid arthritis involving multiple sites with positive rheumatoid factor (CMS/HCC) Take 1 tablet by mouth Once daily as needed for severe pain. 30 tablet 2024 Active gabapentin (Neurontin) 100 MG capsuleIndications:Rhe umatoid arthritis involving multiple sites with positive rheumatoid factor (CMS/HCC) Take 3 capsules (300 mg) by mouth at bedtime. 270 capsule 03/26 Active gabapentin (Neurontin) 100 MG capsuleIndications:Rhe umatoid arthritis involving multiple sites with positive rheumatoid factor (CMS/HCC) Take 3 capsules (300 mg) by mouth at bedtime. 270 capsule 12/25 Discontinued( Reorder (will not trigger notification to Pharmacy)) Active Problems Problem Noted Date Diagnosed Date Elevated BP without diagnosis of hypertension Assessment & Plan (12/05/2024 9:00 AM EST): Elevated clinic BPs without diagnosis of hypertension; home values largely at goal less than 140/90. Suspect clinic elevations secondary to health related anxiety with upcoming procedures. Reassuringly asymptomatic and clinically well-appearing. Patient to continue to monitor at home daily and to return in 6 weeks for nursing follow-up for blood pressure recheck. Assessment & Plan (11/14/2024 9:59 AM EST): Elevated clinic BPs without diagnosis of hypertension. Reassuringly asymptomatic and clinically well-appearing. Patient to monitor at home daily and to return in 2 weeks for follow-up. Hematochezia 08/15/2024 Assessment & Plan (08/15/2024 8:47 AM EDT): - The patient reported noticing blood in their stool. No external hemorrhoids visualized during the physical examination. The patient's history of anemia is stable and has slightly improved reassuringly. Hx/o colonoscopy in 2020 with recommendation to repeat in 5 years given hx/o colonic polyps. Of note +FIT prior to 2020 colonoscopy. - The patient will be given a fit test to check for blood in the stool at home. If the test is positive, the patient will be referred for a colonoscopy. The patient will also have a complete blood count and iron studies checked before the next appointment. - Risks/Side effects: The patient was informed of the potential need for a colonoscopy if the fit test is positive for risk of colon cancer. Pure hypercholesterolemia 06/04/2018 Assessment & Plan (11/14/2024 9:58 AM EST): HLD with slight improvement since increasing atorvastatin to 40 mg with LDL decreased from 95-84. Goal less than 70. Shared decision to continue as is and recheck in 3 months. If still above 70 then may increase to 80 mg at that time. Assessment & Plan (08/15/2024 8:49 AM EDT): - The patient's LDL cholesterol is still above the desired level of 70, despite being on Atorvastatin. The patient agreed to increase the dosage to 40 mg. - Increase Atorvastatin dosage to 40 mg. Monitor for any side effects such as increased joint pain or muscle pain. Recheck cholesterol levels before the next appointment. - Risks/Side effects: The patient was informed of potential side effects including increased joint pain and muscle pain. Assessment & Plan (03/13/2024 9:56 AM EDT): Reviewed LDL above goal <70. Advised increasing atorvastatin to 40mg. Shared decision to first recheck lipid panel in 5 months before next f/u visit - if still above goal then will increase dose at that time. For now continue 20mg. Assessment & Plan (03/09/2023 10:25 AM EDT): Stable on lipitor. Repeat labs in 6 months prior to f/u visit. Aneurysm of thoracic aorta 06/04/2018 Overview (12/05/2024): Stable aortic root aneurysm now <4cm on 06/2024 TTE which also had EF 60-65%. F/b cardiology annually with twice yearly TTE. Assessment & Plan (12/05/2024 8:59 AM EST): Stable. Pt asymptomatic. Normal exam. No CI to cataract surgery. Continue to monitor. Rheumatoid arthritis 03/09/2016 Assessment & Plan (11/14/2024 10:00 AM EST): Stable rheumatoid arthritis on current regimen including specialist care and PCP prescription/monitoring of intermittent Percocet use. Patient continues to demonstrate appropriate and sparing use. No concern for misuse/diversion. No current side effects. Obtained updated drug screen and med contract today. Continue to monitor. Assessment & Plan (03/13/2024 9:57 AM EDT): Stable. Continue to follow w/ specialist. Remains with appropriate use of opioid therapy for breakthrough pain - no concern for misuse/diversion at this time or negative adverse effects. Obtained routine drug screen. Continue to monitor. Return in 5 months for continued monitoring. Assessment & Plan (11/29/2023 9:29 AM EST): Stable. Continue to follow w/ specialist. Remains with appropriate use of opioid therapy for breakthrough pain - no concern for misuse/diversion at this time or negative adverse effects. Obtained repeat annual med contract today. Up to date on drug screen. Continue to monitor. Return in 3-4 months for CPE. Assessment & Plan (08/09/2023 9:25 AM EDT): Clinically benefiting from current med regimen, taking as prescribed and tolerating well with no side effects. Continue as is and will continue to monitor. Continue to follow w/ game technician in [place]. Appropriate use of opioid therapy. No concern for misuse/diversion at this time or negative adverse effects. Obtained repeat drug screen today. Refilled tramadol. Assessment & Plan (03/09/2023 10:25 AM EDT): Establishing w/ new rheum office on 03/22. Refilled prednisone and gabapentin. Pt reports having enough methotrexate, folic acid, and leucovorin to get him to rheum appt. Stable and clinically benefiting from current regimen. Not yet in need of refills for tramadol or percocet last filled in 11/2022. Assessment & Plan (11/29/2022 1:31 PM EST): Clinically benefiting from current med regimen, taking as prescribed and tolerating well with no side effects. Continue as is and will continue to monitor. Pt to follow up with new rheum office in [place] to inquire if they can provide bridge scripts of methotrexate, prednisone, folic acid, and leucovorin prior to his visit. If not then I will consult w/ specialist on monitoring around providign bridge prescriptions for him. Will continue to prescribe percocet and tramadol which pt is taking appropriately. No concerns around use. Repeated tox screen today and signed updated med contract. Solitary pulmonary nodule 10/05/2014 Overview (11/29/2022): Note: 3mm pulmonary nodule on abd. CT 10/09, last CT scan in 2016 recommended no further follow up due to stable nodules Anemia 08/28/2014 Assessment & Plan (11/14/2024 9:58 AM EST): Stable anemia with further hemoglobin increased to 13. Normal iron. Smear with both microcytic and macrocytic anemia. Suspect secondary to methotrexate. Though given history of hematochezia and positive FIT has GI appointment scheduled for March 23 for further evaluation. Reassuringly patient asymptomatic and no recurrent episodes. Assessment & Plan (08/15/2024 8:49 AM EDT): Stable anemia likely secondary to methotrexate, Hgb increased actually from 12.2 to 12.8. Continue to monitor. Repeat CBC and iron studies for further monitoring given new history of hematochezia. 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 Stable. Repeat monitoring labs prior to next f/u visit in ~ 5 months. Assessment & Plan (03/09/2023 10:26 AM EDT): Chronic. Unclear cause. Possibly methotrexate-related. UTD on CRC screening. Repeat labs 6 months prior to next visit and continue to monitor. 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 Macular degeneration 11/13/2012 Overview (11/29/2022): Note: Bilateral with hx of retinal detachment Resolved Problems Problem Noted Date Diagnosed Date Resolved Date Benign essential hypertension 06/04/2018 12/05/2024 Overview (11/24/2022): Last Assessment & Plan: Aggressively controlled to the guidelines EKG done today shows sinus rhythm at 60 bpm Encounters Date Type Department Care Team Description 12/25/[address] [phone] Rogerio Deng PA Rheumatoid arthritis involving multiple sites with positive rheumatoid factor ([facility]/HCC) 12/09/[address] [address] Rogerio Deng PA Rheumatoid arthritis involving multiple sites with positive rheumatoid factor ([facility]/HCC) 12/05/2024 8:00 AM EST Office Visit [address] [phone] Rogerio Deng PA Encounter for pre-operative examination (Primary Dx); Elevated BP without diagnosis of hypertension; Thoracic aortic aneurysm without rupture, unspecified part ([facility]) 11/14/2024 8:20 AM EST Office Visit [address] [phone] Rogerio Deng PA Anemia, unspecified type (Primary Dx); Encounter for long-term (current) use of medications; Pure hypercholesterolemia; Elevated BP without diagnosis of hypertension; Rheumatoid arthritis involving multiple sites with positive rheumatoid factor ([facility]/HCC) from Last 3 Months Immunizations Name Administration Dates Next Due Influenza High-dose Quadriva lent Preservative Free 08/09/2023 Influenza Quadrivalent Adjuvanted 09/05/2021,12/2019 Influenza injectable quadriv alent IIV4 with preservative 10/09/2018,10/02/2017 Influenza, High Dose Seasona l, Preservative Free 08/15/2024,08/29/2022,09/11/2018,09/26,10/18/2016,08/23/2015,08/17/2014 Influenza, IIV3, injectable 08/22/2013, 2 Influenza, trivalent, adjuvanted 09/05/2019 Moderna Covid-19 Vaccine 12+ 08/15/2024,09/07/20 23 Pfizer Covid-19 Vaccine 12+ 08/29/2022 Pneumococcal Conjugate PCV 13 08/31/2017 Pneumococcal Polysaccharide PPSV23 07/03/2013 RSV Adjuvant 12/07/2023 TD (adult), 2 Lf tetanus tox oid, preservative free, adsorbed 08/09/2023,07/03/2013 Tdap 08/09/2023 Zoster, Recombinant 12/03/2020,09/16/2020 Social History Tobacco Use Types Packs/Day Years Used Date Smoking Tobacco: Former Cigarettes 1 40 1 966 - 2006 Passive Smoke Exposure: Never Smokeless Tobacco: Never Tobacco Cessation:Counseling Given: Not Answered Alcohol Use Standard Drinks/Week Comments Not Currently [...] file Not on file Not on file Last Filed Vital Signs Vital Sign Reading Time Taken Comments Blood Pressure 145/69 12/05/2024 8:33 AM EST Pulse 56 12/05/2024 8:33 AM EST Temperature 36.4 ??C (97.5 ??F) 12/05/2024 8:11 AM ES T Respiratory Rate 16 07/24/2024 10:44 AM EDT Oxygen Saturation 97% 12/05/2024 8:11 AM EST Inhaled Oxygen Concentration - - Weight 75.9 kg (167 lb 6.4 oz) 07/24/2024 10:44 AM EDT Height 173 cm (5' 8.1 ) 07/24/2024 10:44 AM EDT Body Mass Index 25.38 07/24/2024 10:44 AM EDT Plan of Treatment Upcoming Encounters Date Type Department Care Team (Late st Contact Info) Description 01/16/2025 9:00 AM EST Clinical Support [address] [phone] 02/19/2025 9:40 AM EDT Office Visit [address] [phone] Rogerio Deng PA [address] [place] [address] Health Maintenance Due Date Last Done Comments Dental Oral Exam 1945 Dental Prophylaxis 1945 Dental X-Ray: Bitewings 1946 Dental X-Ray: Full Mouth 1945 Hepatitis A Vaccines (1 of 2 - Risk 2-dose series) 1965 Alcohol/Substance Use Screening 03/13/2025 03/13/2024 Depression Screening 07/24/2025 07/24/2024, 03/13/20 24 SDOH Screening 07/24/2025 07/24/2024 Tobacco Screening 12/05/2025 12/05/2024 Lipid Panel 11/10/2029 11/10/2024, 07/27, 08/09/2023, Additional history exists DTaP/Tdap/Td Vaccines (2 - Td or Tdap) 08/09/2033 08/09/2023, 08/09/2023, 07/03/2013 Hepatitis C Screening Completed 03/28/2017 Pneumococcal Vaccine: 50+ Years Completed 08/31/2017, 07/03/2013 Zoster Vaccines Completed 12/03/2020, 09/16/2020 RSV Patients and Patients Aged 60 years or older Completed 12/07/2023 COVID-19 Vaccine Completed 08/15/2024, , 08/29/2022, Additional history exists Influenza Vaccine Completed 08/15/2024, , 08/29/2022, Additional history exists HIB Vaccines Aged Out No longer eligi ble based on patient's age to complete this topic HPV Vaccines Aged Out No longer eligi ble based on patient's age to complete this topic Hepatitis B Vaccines Aged Out No long er eligible based on patient's age to complete this topic IPV Vaccines Aged Out No longer eligi ble based on patient's age to complete this topic Meningococcal Vaccine Aged Out No marky anthony eligible based on patient's age to complete this topic RSV under 20 months Aged Out No longe r eligible based on patient's age to complete this topic Rotavirus Vaccines Aged Out No longer eligible based on patient's age to complete this topic Procedures Procedure Name Priority Date/Time Associated Diagnosis Comments DRUG TOX MONITORING 1, W/CONF, ORAL FLUID Routine 11/14/2024 8:30 AM EST Encounter for long-term (current) use of medications PATHOLOGIST REVIEW OF PERIPHERAL SMEAR Routine 11/10/2024 8:34 AM EST Anemia, unspecified type RETICULOCYTE COUNT Routine 11/10/2024 8: 34 AM EST Anemia, unspecified type LIPID PANEL WITH REFLEX TO DIRECT LDL Routine 11/10/2024 8:34 AM EST Pure hypercholesterolemia IRON, TIBC AND FERRITIN PANEL Routine 11/10/2024 8:34 AM EST Anemia, unspecified type CBC WITH AUTO DIFFERENTIAL Routine 11/10/2024 8:34 AM EST Anemia, unspecified type HM HEPATITIS C ANTIBODY Routine 03/28/2017 from Last 3 Months or Most Recently Relevant to Health Maintenance Results * Drug Toxicology Monitoring 1, with Confirmation, Oral Fluid (11/14/2024 8:30 AM EST) Amphetamines NEGATIVE <10 ng/mL [facility] [place] Comment: See Note 1 See Note 2 Barbiturates NEGATIVE <10 ng/mL [facility] [place] Comment: See Note 1 See Note 2 Benzodiazepines NEGATIVE <0.50 ng/mL [facility] [place] Comment: See Note 1 See Note 2 Buprenorphine, Oral Fluid NEGATIVE <0.10 ng/mL [facility] [place] Comment: See Note 1 See Note 2 Cocaine, oral fluid NEGATIVE <5.0 ng/mL [facility] [place] Comment: See Note 1 See Note 2 Fentanyl NEGATIVE <0.10 ng/mL [facility] Comment: See Note 1 See Note 2 Heroin Metabolite NEGATIVE <1.0 ng/mL [facility] Comment: See Note 1 See Note 2 Marijuana, oral fluid NEGATIVE <2.5 ng/mL [facility] Comment: See Note 1 See Note 2 MDMA Screen, Oral Fluid NEGATIVE <10 ng/mL [facility] Comment: See Note 1 See Note 2 Meprobamate NEGATIVE <2.5 ng/mL [facility] Comment: See Note 1 See Note 2 Methadone, Oral Fluid NEGATIVE <5.0 ng/mL [facility] Comment: See Note 1 See Note 2 Nicotine Metabolite NEGATIVE <5.0 ng/mL [facility] Comment: See Note 1 See Note 2 Opiates, oral fluid NEGATIVE <2.5 ng/mL [facility] Comment: See Note 1 See Note 2 Phencyclidine, oral fluid NEGATIVE <10 ng/mL [facility] Comment: See Note 1 See Note 2 Tapentadol NEGATIVE <5.0 ng/mL [facility] Comment: See Note 1 See Note 2 Tramadol, Oral Fluid NEGATIVE <5.0 ng/mL [facility] Comment: See Note 1 See Note 2 Zolpidem NEGATIVE <5.0 ng/mL [facility] Comment: See Note 1 See Note 2 Note 1 This test was developed and its analytical performance characteristics have been determined by [facility]. It has not been cleared or approved by the FDA. This assay has been validated pursuant to the CLIA regulations and is used for clinical purposes. Note 2 For additional information, please refer to: http://education.[employer]/faq/JLK144 (This link is being provided for informational/ educational purposes only.) This drug testing is for medical treatment only. Analysis was performed as non-forensic testing and these results should be used only by healthcare providers to render diagnosis or treatment, or to monitor progress of medical conditions. For assistance with interpreting these drug results, please contact a [facility] Toxicology Specialist: [phone] ( ), M-F, 8am-6pm EST. Oral Fluid 11/14/2024 8:30 AM EST 11/14/2024 9:58 AM EST Rogerio BURR LAB BODY FLUIDS AND STOOLS ORDER QUENTIN Final Result [facility] [address], [place] [address] [facility] [address] [facility], [address] [place] [address] * Lipid Panel with Reflex to Direct LDL (11/10/2024 8:34 AM EST) Cholesterol, Total 154 <200 mg/dL [facility] HDL Cholesterol 53 > OR = 40 mg/dL [facility] [place] [facility] Triglycerides 77 <150 mg/dL [facility] [place] [facility] LDL Cholesterol 84 mg/dL [facility] [place] [facility] Comment: Reference range: <100 Desirable range <100 mg/dL for primary prevention; ?? <70 mg/dL for patients with CHD or diabetic patients with > or = 2 CHD risk factors. LDL-C is now calculated using the Lenin-Chiu calculation, which is a validated novel method providing better accuracy than the Friedewald equation in the estimation of LDL-C. Lenin SS et al. CINDY. 2013;310(19): 5116-5208 (http://education.[employer]/faq/SRO205) Chol/HDLC Ratio 2.9 <5.0 (calc) [facility] [place] [facility] Non-HDL Cholesterol 101 <130 mg/dL [facility] [place] [facility] Comment: For patients with diabetes plus 1 major ASCVD risk factor, treating to a non-HDL-C goal of <100 mg/dL (LDL-C of <70 mg/dL) is considered a therapeutic option. Blood 11/10/2024 8:34 AM EST 11/10/2024 8:34 AM EST Narrative [facility] - 11/13/2024 5:37 AM EST FASTING:YES FASTING: YES Rogerio BURR LAB BLOOD ORDERABLES Final Resul t Performing Organization Address [facility] de Phone Number [facility] [address], [facility] [place] [address] [facility] [address] [place] [address] * Iron, TIBC And Ferritin Panel (11/10/2024 8:34 AM EST) [facility] Iron, Total 68 50 - 180 mcg/dL [facility] [place] [facility] Iron Binding Capacity 344 250 - 425 mcg/dL (calc) [facility] % Saturation 20 20 - 48 % (calc) [facility] Ferritin 66 24 - 380 ng/mL [facility] Blood 11/10/2024 8:34 AM EST 11/10/2024 8:34 AM EST Narrative [facility] - 11/13/2024 5:37 AM EST FASTING:YES FASTING: YES Rogerio BURR LAB BLOOD ORDERABLES Final Resul t Performing Organization Address [facility] de Phone Number [facility] [address], [facility] [place] [address] [facility] [address] [place] [address] * (ABNORMAL) CBC auto differential (11/10/2024 8:34 AM EST) [facility] White Blood Cell Count 6.1 3.8 - 10.8 Thousand/ uL [facility] Red Blood Cell Count 4.07(L) 4.20 - 5.80 Million/u L [facility] Hemoglobin 13.0(L) 13.2 - 17.1 g/dL [facility] Hematocrit 40.8 38.5 - 50.0 % [facility] MCV 100.2(H) 80.0 - 100.0 fL [facility] MCH 31.9 27.0 - 33.0 pg [facility] MCHC 31.9(L) 32.0 - 36.0 g/dL [facility] Comment: For adults, a slight decrease in the calculated MCHC value (in the range of 30 to 32 g/dL) is most likely not clinically significant; however, it should be interpreted with caution in correlation with other red cell parameters and the patient's clinical condition. RDW 13.1 11.0 - 15.0 % [facility] Platelet Count 224 140 - 400 Thousand/ uL [facility] [place] [facility] MPV 9.8 7.5 - 12.5 fL [facility] Absolute Neutrophils 3,959 1,500 - 7,800 cells/uL [facility] Absolute Lymphocytes 964 850 - 3,900 cells/uL [facility] Absolute Monocytes 665 200 - 950 cells/uL [facility] Absolute Eosinophils 433 15 - 500 cells/uL [facility] Absolute Basophils 79 0 - 200 cells/uL [facility] Neutrophils 64.9 % [facility] Lymphocytes 15.8 % [facility] Monocytes 10.9 % [facility] Eosinophils 7.1 % [facility] Basophils 1.3 % [facility] Blood Venous blood specimen / Unknown 11/10/2024 8:34 AM EST 11/10/2024 8:34 AM EST Narrative [facility] - 11/13/2024 5:37 AM EST FASTING:YES FASTING: YES Rogerio BURR LAB BLOOD ORDERABLES Final Resul t [facility] [address], [place] [address] [facility] [place] [facility] [address] [place] [address] * Pathologist Review Of Peripheral Smear (11/10/2024 8:34 AM EST) Pathologist Review Of Peripheral Smear * [facility] [place] [facility] Comment: MCHC is mildly decreased. Macrocytic anemia. Recommend correlation with other clinical and laboratory information. Combination of microcytic ??and macrocytic anemia is possible. SLIDE REVIEWED BY PATHOLOGIST. Anam (11/12/24) As of December 08, 2024, test code 833, Pathologist Review of Peripheral Smear will be discontinued. Per previous communication sent Oct 07, 2024, this update is to further align with standard processes as well as allow us to provide more accurate and timely result reporting. Please consider ordering the standard CBC with differential/Platelet, test code 6399, for your testing needs. Blood Venous blood specimen / Unknown 11/10/2024 8:34 AM EST 11/10/2024 8:34 AM EST Narrative [facility] - 11/13/2024 5:37 AM EST FASTING:YES FASTING: YES Rogerio BURR LAB BLOOD ORDERABLES Final Resul t Performing Organization Address [facility] Co de Phone Number [facility] [address], [facility] [place] [address] [facility] [address] [place] [phone] * Reticulocyte Count (11/10/2024 8:34 AM EST) Reticulocyte Count, Automated 1.9 % [employer] [facility] [place] [facility] Reticulocyte, Absolute 77,330 25,000 - 90,000 cells/uL [facility] [place] [facility] [facility] Blood Venous blood specimen / Unknown 11/10/2024 8:34 AM EST 11/10/2024 8:34 AM EST Narrative [facility] - 11/13/2024 5:37 AM EST FASTING:YES FASTING: YES Rogerio BURR LAB BLOOD ORDERABLES Final Resul t Performing Organization Address [facility] Co de Phone Number [employer] [address] [place] [address], [facility] [place] [address] [employer] [place] [employer] [address] [place] [phone] * HM Hepatitis C Antibody (03/28/2017) Hepatitis C Antibody Nonreactive Blood Historical Provider HEALTH MAINTENANCE Final Result from Last 3 Months or Most Recently Relevant to Health Maintenance Insurance MEDICARE [place] [phone] [facility] MEDEX CARE Advance Directives Documents on File Type Date Recorded Patient Pathology Collector Expl anation HealthCare Proxy 08/05/2024 updated hea lthcare proxy paperwork 08/05/2024 HealthCare Proxy 07/24/2024 HEALTHCARE PROXY HEALTHCARE AGENT: AGENT TINO CULP ALTERNATE AMINA CULP Care Teams Dietary Aid Relationship Specialty Start Date End Date Rogerio Deng PA [address] [place] [phone] PCP - General Family Medicine 11/24/22 [place] [address] [place] [address] Ophthalmology 07/24/24 Gaurav Anderson [address] [place] [address] Cardiology 07/24/24 Costa Roberts [address] [place] [address] Optometry 07/24/24 Sergio Borden, DMD [address] [place] [address] Dentist 07/24/24 Josefa Chau MD [address] [place] [address], [address] [place] [address] Rheumatology 07/24/24
--- OUTSIDE RECORDS SUMMARY | 2025-01-13 09:50 | XMS_ITS | Encounter Summary ---
Author Organization [employer] Address [address] [place] [address] [address] [place] [address] Care Team Providers Care Orthopedics Teacher Name Role Phone Rogerio Deng Primary Care Provider [phone] Wilbert Dickson MD Unavailable Gaurav Anderson Unavailable Costa Roberts Unavailable Encounter Details Date Type Department Care Team (Late st Contact Info) Description 11/15/2022 [facility] Information Management [address] [place] [phone] Maggie Balderas MD [address] [place] [phone] Social History Tobacco Use Types Packs/Day Years [...] Description 01/16/2025 9:00 AM EST Clinical Support [address] [phone] 02/19/2025 9:40 AM EDT Office Visit [address] [phone] Rogerio Deng PA [address] [place] [phone] documented as of this encounter Visit Diagnoses Not on filedocumented in this encounter Care Teams Orthopedics Teacher Relationship Specialty Start Date End Date Rogerio Deng PA [address] [place] [address] PCP - General Family Medicine 11/24/22 Wilbert Dickson MD [address] [address] Ophthalmology 07/24/24 Gaurav Anderson [address] [place] [address] Cardiology 07/24/24 Costa Roberts [address] [place] [address] Optometry 07/24/24 Sergio Borden, DMD [address] [place] [address] Dentist 07/24/24 Josefa Chau MD [address] [place] [address], [address] [place], [place] [phone] Rheumatology 07/24/24 documented as of this encounter
[2025-01-13 10:16] LABS: MANUAL DIFF FLAG NO
[2025-01-13 10:20] LABS: Basophils Absolute Auto 0.1 X10*3/uL (0.0-0.2); Basophils Percent Auto 0.8 % (0-2); Eosinophils Absolute Auto 0.3 X10*3/uL (0.0-0.4); Eosinophils Percent Auto 2.7 % (0-4); Hematocrit 40.5 % (42.0-52.0); Hemoglobin 12.9 g/dl (14.0-18.0); Imm Gran Abs Auto 0.03 X10*3/uL (0.00-0.03); Imm Gran Pct Auto 0.3 % (0.0-0.4); Lymphocytes Absolute Auto 1.1 X10*3/uL (1.2-4.9); Lymphocytes Percent Auto 10.2 % (20-40); Mean Corpuscular HGB Conc 31.9 g/dl (31.0-36.0); Mean Corpuscular Hemoglobin 31.8 pg (27.0-33.0); Mean Corpuscular Volume 99.8 fL (80.0-98.0); Mean Platelet Volume 9.5 fL (9.4-12.4); Monocytes Absolute Auto 0.8 X10*3/uL (0.1-1.2); Monocytes Percent Auto 7.6 % (2-11); Neutrophils Absolute Auto 8.3 x10*3/uL (2.0-8.3); Neutrophils Percent Auto 78.4 % (45-73); Platelet Count 217 X10*3/uL (160-400); Red Blood Count 4.06 X10*6/uL (4.60-5.80); Red Cell Distribution Width 14.6 % (11.0-16.0); White Blood Count 10.5 X10*3/uL (4.8-10.8)
[2025-01-13 10:49] LABS: Alanine Aminotransferase 20 U/L (0-40); Albumin Level 4.1 g/dL (3.5-5.0); Alkaline Phosphatase 103 U/L (39-117); Anion Gap 12 (12-20); Aspartate Amino Transferase 27 U/L (5-37); Bilirubin Total 0.5 mg/dL (0.0-1.0); Blood Urea Nitrogen 16 mg/dL (9-16); Calcium 9.2 mg/dL (8.4-10.2); Carbon Dioxide 26 mmol/L (22-29); Chloride 108 mmol/L (96-108); Estimated Glomerular Filt Rate > 60; Glucose Random 121 mg/dL (60-115); Potassium 4.4 mmol/L (3.3-5.1); Sodium 142 mmol/L (135-145); Total Protein 6.7 g/dL (6.5-8.0)
[2025-01-13 11:07] LABS: Erythrocyte Sedimentation Rate 6 MM/HR (0-15)
== END 2025-01-13 09:12 | disposition home or self-care (01) ==
LOC: HO.10HDL 09:11
PROVIDERS: Visit Provider Student in an Organized Health Care Education/Training Program
DX: M06.09 Rheumatoid arthritis without rheumatoid factor, multiple sites (principal); Z79.631 Long term (current) use of antimetabolite agent
CPT/HCPCS: 36415; 80053; 85025; 85652; 86140